=== PATIENT | male | born 1955 | race Caucasian/White ===

== ENCOUNTER 2017-06-08 19:52 | Emergency (ER) | payer MEDICAID ==
[~2017-06-08] VITALS: Ht 170.2 cm; Wt 63.3 kg
[2017-06-08] MEDS ORDERED: DIPH,PERTUSS(ACELL),TET VAC/PF 0.5 ML IM-VACC ONE ×2 (21:30→21:32)
[2017-06-08] MEDS ORDERED: LIDOCAINE 2%, 20ML SQ ONE (21:30)
[2017-06-08] MEDS ORDERED: HYDROmorphone 1 MG/ML, 1ML IM ONE (21:30)
[2017-06-08] MEDS ORDERED: HYDROmorphone 2 MG/ML, 1ML ONE (21:32)
[2017-06-08] MEDS ORDERED: LIDOCAINE 1%, 20ML ONE (21:32)
[2017-06-08 22:03] VITALS: BP 131/65
== END 2017-06-08 22:50 | disposition home or self-care (01) ==
LOC: ED 22:30
DX: L02.31 Cutaneous abscess of buttock (principal); Z23 Encounter for immunization; F17.200 Nicotine dependence, unspecified, uncomplicated; F11.10 Opioid abuse, uncomplicated
CPT/HCPCS: 10060; 90471; 90715; 96372; 99284; J1170; J3490

== ENCOUNTER 2017-06-09 22:11 | Emergency (ER) | payer MEDICAID ==
[~2017-06-09] VITALS: Ht 170.2 cm; Wt 61.5 kg
[2017-06-09 22:13] VITALS: BP 159/85
== END 2017-06-09 22:49 | disposition home or self-care (01) ==
LOC: ED 22:41
DX: Z48.01 Encounter for change or removal of surgical wound dressing (principal); F11.90 Opioid use, unspecified, uncomplicated
CPT/HCPCS: 99283

== ENCOUNTER 2019-05-29 11:49 | Emergency (ER) | payer MEDICAID ==
[~2019-05-29] VITALS: Ht 170.2 cm; Wt 70.1 kg
[2019-05-29 11:52] VITALS: BP 154/74
--- NOTE | 2019-05-29 12:50 | NUR ---
BILATERAL LEG SWELLING FOR WEEKS BUT WORSENING THIS WEEK. PT NOTED TO HAVE REDNESS LEFT ARM AND LESION RIGHT SHOLDER
[2019-05-29 12:59] LABS: BASOPHILS # (AUTO) 0.02 x10^3/uL (0-0.1); BASOPHILS % (AUTO) 0 % (0-1); EOSINOPHILS # (AUTO) 0.02 x10^3/uL (0-0.4); EOSINOPHILS % (AUTO) 0 % (1-7); LYMPHOCYTES % (AUTO) 24 % (22-44); MD NO; MEAN CORPUSCULAR HEMOGLOBIN 29.6 pg (27.5-34.5); MEAN CORPUSCULAR HGB CONC 32.4 g/dL (33.2-36.2); MEAN CORPUSCULAR VOLUME 91.6 fL (81-97); MEAN PLATELET VOLUME 7.8 fL (7.4-10.4); MONOCYTES # (AUTO) 0.29 x10^3/uL (0.2-0.8); MONOCYTES % (AUTO) 6 % (2-9); NEUTROPHILS # (AUTO) 3.24 x10^3/uL (1.8-6.8); NEUTROPHILS % (AUTO) 69 % (42-75); PLATELET COUNT 135 x10^3/uL (130-400); RED BLOOD COUNT 3.62 x10^6/uL (4.38-5.82); RED CELL DISTRIBUTION WIDTH 17.5 % (9.4-14.8)
--- NOTE | 2019-05-29 13:01 | NUR ---
ULTRASOUND AT BEDSIDE
[2019-05-29 13:12] LABS: ALANINE AMINOTRANSFERASE 43 U/L (12-78); ALBUMIN 2.7 g/dL (3.4-5.0); ANION GAP 7 mmol/L (5-15); CALCIUM 8.1 mg/dL (8.5-10.1); CHLORIDE 106 mmol/L (98-107); CREATININE 0.95 mg/dL (0.7-1.3)
[2019-05-29 13:22] LABS: ALKALINE PHOSPHATASE 186 U/L (45-117); BILIRUBIN,TOTAL 1.1 mg/dL (0.2-1.0); TOTAL PROTEIN 7.6 g/dL (6.4-8.2)
--- NOTE | 2019-05-29 13:44 | NUR ---
MD AT BEDSIDE DISCUSSING RESULTS OF TESTS. PT UOB TO BATHROOM, STEADY GAIT.
[2019-05-29 13:51] LABS: MICROSCOPIC NOT IND
[2019-05-29 13:56] LABS: CULTURE INDICATED? NO
[2019-07-18] MEDS ORDERED: FURO40TA6 PO (15:44)
[2019-07-20] MEDS ORDERED: AMOX1TAB61 PO (17:01)
[2019-07-20] MEDS ORDERED: FURO40TA6 PO (17:01)
== END 2019-05-29 14:38 | disposition home or self-care (01) ==
LOC: ED 12:35
DX: R60.0 Localized edema (principal); I87.2 Venous insufficiency (chronic) (peripheral); F11.10 Opioid abuse, uncomplicated; Z90.49 Acquired absence of other specified parts of digestive tract
CPT/HCPCS: 36415; 71045; 80053; 81003; 83735; 83880; 84443; 85025; 93005; 93970; 99284

== ENCOUNTER 2019-10-10 11:02 | Day surgery (SDC) | payer MEDICAID ==
[2019-10-07 16:28] LABS: BASOPHILS # (AUTO) 0.01 x10^3/uL (0-0.1); BASOPHILS % (AUTO) 0 % (0-1); EOSINOPHILS # (AUTO) 0.09 x10^3/uL (0-0.4); EOSINOPHILS % (AUTO) 2 % (1-7); LYMPHOCYTES # (AUTO) 1.31 x10^3/uL (1-3.4); LYMPHOCYTES % (AUTO) 28 % (22-44); MD NO; MEAN CORPUSCULAR HEMOGLOBIN 30.6 pg (27.5-34.5); MEAN CORPUSCULAR HGB CONC 32.5 g/dL (33.2-36.2); MEAN PLATELET VOLUME 7.5 fL (7.4-10.4); MONOCYTES # (AUTO) 0.36 x10^3/uL (0.2-0.8); MONOCYTES % (AUTO) 8 % (2-9); NEUTROPHILS # (AUTO) 2.89 x10^3/uL (1.8-6.8); NEUTROPHILS % (AUTO) 62 % (42-75); PLATELET COUNT 124 x10^3/uL (130-400); RED BLOOD COUNT 3.97 x10^6/uL (4.38-5.82); RED CELL DISTRIBUTION WIDTH 16.5 % (9.4-14.8)
[2019-10-07 16:40] LABS: INTERNATIONAL NORMALIZED RATIO 1.45 (0.93-1.1)
[2019-10-07 16:48] LABS: ALANINE AMINOTRANSFERASE 41 U/L (12-78); ALBUMIN 2.5 g/dL (3.4-5.0); ANION GAP 8 mmol/L (5-15); CALCIUM 8.5 mg/dL (8.5-10.1); CHLORIDE 104 mmol/L (98-107); CREATININE 0.99 mg/dL (0.7-1.3)
[2019-10-07 16:51] LABS: ALKALINE PHOSPHATASE 171 U/L (45-117); BILIRUBIN,TOTAL 2.1 mg/dL (0.2-1.0); TOTAL PROTEIN 7.4 g/dL (6.4-8.2)
[~2019-10-10] VITALS: Ht 170.2 cm; Wt 66.0 kg
[~2019-10-10 11:02] MED LIST: AMOX1TAB61 PO; FURO20TA3 PO; FURO40TA6 PO; SPIR25TA5 PO
[2019-10-10 11:28] VITALS: BP 153/83
[2019-10-10] MEDS ORDERED: PROPOFOL 50 ML ONE (12:33)
== END 2019-10-10 13:55 | disposition home or self-care (01) ==
LOC: OUT 11:02
PROVIDERS: ATTEND Internal Medicine Gastroenterology
DX: K70.31 Alcoholic cirrhosis of liver with ascites (principal); I85.10 Secondary esophageal varices without bleeding; K76.6 Portal hypertension; K31.89 Other diseases of stomach and duodenum; B18.2 Chronic viral hepatitis C; F11.90 Opioid use, unspecified, uncomplicated; F17.210 Nicotine dependence, cigarettes, uncomplicated; Z72.89 Other problems related to lifestyle; Z79.899 Other long term (current) drug therapy
CPT/HCPCS: 36415; 43235; 80053; 85025; 85610; 85730; 93005; J2704

== ENCOUNTER 2019-11-13 14:16 | Inpatient (IN) | payer MEDICAID ==
[~2019-11-13] VITALS: Ht 170.2 cm; Wt 70.5 kg
--- NOTE | 2019-11-13 16:22 | NUR ---
PT AMBULATORY WITH STEADY GAIT FROM LOBBY TO ROOM 26.
[2019-11-13] MEDS ORDERED: SODIUM CHLORIDE FLUSH 10ML SYR IVF ONE (17:00)
[2019-11-13] MEDS ORDERED: CEFTRIAXONE PMX 1GM/50ML 50 ML IVPB ONE (17:00)
[2019-11-13 17:25] LABS: MEAN CORPUSCULAR HEMOGLOBIN 30.2 pg (27.5-34.5); MEAN CORPUSCULAR VOLUME 91.5 fL (81-97); MEAN PLATELET VOLUME 7.2 fL (7.4-10.4); PLATELET COUNT 170 x10^3/uL (130-400); RED BLOOD COUNT 3.31 x10^6/uL (4.38-5.82); RED CELL DISTRIBUTION WIDTH 16.6 % (9.4-14.8)
[2019-11-13 17:27] LABS: ALBUMIN 1.9 g/dL (3.4-5.0); ANION GAP 11 mmol/L (5-15); CALCIUM 7.9 mg/dL (8.5-10.1); CHLORIDE 102 mmol/L (98-107); CREATININE 1.17 mg/dL (0.7-1.3)
[2019-11-13 17:30] LABS: MD YES
[2019-11-13 17:31] LABS: BAND#(MANUAL) 0.84 x10^3/uL; BANDS%(MANUAL) 5 % (0-7); EOS#(MANUAL) 0.17 x10^3/uL (0.0-0.4); EOS% (MANUAL) 1 % (1-7); LYMPH#(MANUAL) 1.18 x10^3/uL (1-3.4); LYMPHS% (MANUAL) 7 % (22-44); MONOS#(MANUAL) 1.18 x10^3/uL (0.3-2.7); MONOS% (MANUAL) 7 % (2-9); SEG#(MANUAL) 13.44 x10^3/uL (1.8-6.8); SEGS% (MANUAL) 80 % (42-75)
[2019-11-13 17:33] LABS: <PLATELET ESTIMATE> ADEQUATE; ANISOCYTOSIS 1+; POLYCHROMASIA 1+
[2019-11-13 17:34] LABS: SMALL PLATELETS 1+
[2019-11-13] MEDS ORDERED: CEFTRIAXONE PMX 1GM/50ML 50 ML ONE ×2 (17:49→17:59)
--- NOTE | 2019-11-13 18:11 | NUR ---
IV PLACED, ANTIBIOTIC INFUSING AFTER CONFIRMATION OF BC X 2 DRAWN. I&D SET UP AT BS. CALL LIGHT WITHIN REACH. PT COMFORTABLE AT THIS TIME.
[2019-11-13] MEDS ORDERED: LIDOCAINE-MPF 1%, 5ML ONE (19:36)
--- NOTE | 2019-11-13 19:37 | NUR ---
CONTINUE TO AWAIT PROCALCITONIN LAB. PT TO BE ADMITTED. MED REC COMPLETED TO BEST OF PT RECOLLECTION. PT STATES HE TAKES 2 "PEE" MEDS. LIDOCAINE GIVEN TO ERP. VSS/UPDATED IN COMPUTER.
--- NOTE | 2019-11-13 19:52 | NUR ---
REPORT TO KAILEY HOWARD, TRANSFER OF CARE AT THIS TIME. PT TO XR.
--- NOTE | 2019-11-13 20:03 | NUR ---
report from michaela bahena
[2019-11-13] MEDS ORDERED: SODIUM CHLORIDE FLUSH 10ML SYR IVF PRN (21:00)
--- NOTE | 2019-11-13 21:04 | NUR ---
PT CLEANED AND NEW LINENS APPLIED.
--- NOTE | 2019-11-13 21:04 | NUR ---
BANDAGES TO THE RIGHT HIP WOUND AND LEFT SHOULDER WOUND APPLIED. CLEAN DRY AND INTACT AT THIS TIME.
[2019-11-13] MEDS ORDERED: SODIUM CHLORIDE 0.9% 1,000 ML IV ONE (21:09)
--- NOTE | 2019-11-13 21:13 | NUR ---
I ASKED DR STEELE FOR ORDERS FOR FLUIDS. ORDERS RECIEVED AND IV BOLUS INITIATED.
[2019-11-13] MEDS ORDERED: SODIUM CHLORIDE 0.9% 1,000ML IVBOLUS ONE (21:30)
[2019-11-13 22:30] LABS: ALBUMIN 1.9 g/dL (3.4-5.0); BILIRUBIN, DIRECT 3.2 mg/dL (0.1-0.2)
[2019-11-13 22:32] LABS: BILIRUBIN,INDIRECT 1.4 mg/dL (0.0-2.0); BILIRUBIN,TOTAL 4.6 mg/dL (0.2-1.0); TOTAL PROTEIN 6.4 g/dL (6.4-8.2)
[2019-11-13 22:34] LABS: INTERNATIONAL NORMALIZED RATIO 1.57 (0.93-1.1); PROTHROMBIN TIME 16.7 Seconds (9.6-11.5)
--- NOTE | 2019-11-13 23:22 | NUR ---
Report given to ANITA Allen
[2019-11-13 23:30] VITALS: BP 144/90
[2019-11-13] MEDS ORDERED: VANCOMYCIN PER PHARMACY MC PRN (23:30)
[2019-11-13] MEDS ORDERED: THIAMINE 200 MG in SODIUM CHLORIDE 0.9% 50 ML IV ONE (23:30)
--- NOTE | 2019-11-13 23:39 | NUR ---
At time of admit, pt alert and resting on gurrisa. NAD.
[2019-11-13] MEDS ORDERED: VANCOMYCIN 1,300 MG in SODIUM CHLORIDE 0.9% 250 ML IV SCH (23:45)
[2019-11-13] MEDS ORDERED: PHARMACOKINETIC CONSULTATION MC ONE (23:45)
[2019-11-13] MEDS ORDERED: PHARMACOKINETIC MONITORING MC PRN (23:45)
[2019-11-13] MEDS: morphine SULFATE 10 MG/ML, 1ML IVPush PRN (23:57)
[2019-11-14] MEDS: AMPICILLIN/SULBACTAM 3 GM in SODIUM CHLORIDE 0.9% 100 ML IV SCH ×4 (01:13→20:24)
[2019-11-14] MEDS ORDERED: hydrALAzine 20 MG/ML, 1ML IVPush PRN (01:30)
[2019-11-14] MEDS ORDERED: PROMETHAZINE 25 MG/ML, 1ML IM PRN (01:30)
[2019-11-14] MEDS ORDERED: GABAPENTIN 300 MG CAPSULE PO PRN (01:30)
[2019-11-14] MEDS: VANCOMYCIN 1,600 MG in SODIUM CHLORIDE 0.9% 250 ML IV SCH (01:59)
[2019-11-14 02:06] VITALS: BP 124/74
[2019-11-14] MEDS: morphine SULFATE 10 MG/ML, 1ML IVPush PRN ×4 (06:26→21:38)
[2019-11-14 07:28] VITALS: BP 107/68
[2019-11-14] MEDS: ONDANSETRON 2MG/ML, 2ML IVPush PRN ×2 (08:40→17:58)
[2019-11-14] MEDS: FUROSEMIDE 20 MG/2 ML IV SCH (08:44)
[2019-11-14] MEDS: ENOXAPARIN 40 MG/0.4 ML SQ SCH (08:45)
[2019-11-14] MEDS: SPIRONOLACTONE 25 MG TABLET PO SCH (08:45)
[2019-11-14] MEDS: LACTULOSE 10 GM/15 ML UDC PO SCH ×2 (08:46→20:24)
[2019-11-14 09:01] LABS: MEAN CORPUSCULAR HEMOGLOBIN 30.4 pg (27.5-34.5); MEAN CORPUSCULAR HGB CONC 33.1 g/dL (33.2-36.2); MEAN CORPUSCULAR VOLUME 91.9 fL (81-97); MEAN PLATELET VOLUME 7.1 fL (7.4-10.4); PLATELET COUNT 154 x10^3/uL (130-400); RED CELL DISTRIBUTION WIDTH 16.7 % (9.4-14.8)
[2019-11-14 09:07] LABS: ALANINE AMINOTRANSFERASE 23 U/L (12-78); ALBUMIN 1.5 g/dL (3.4-5.0); ANION GAP 8 mmol/L (5-15); CALCIUM 7.4 mg/dL (8.5-10.1); CHLORIDE 105 mmol/L (98-107); CREATININE 1.05 mg/dL (0.7-1.3)
[2019-11-14 09:09] LABS: ALKALINE PHOSPHATASE 147 U/L (45-117); BILIRUBIN,TOTAL 4.7 mg/dL (0.2-1.0); TOTAL PROTEIN 5.4 g/dL (6.4-8.2)
[2019-11-14 10:03] LABS: MD YES
[2019-11-14 10:05] LABS: BAND#(MANUAL) 1.95 x10^3/uL; BANDS%(MANUAL) 16 % (0-7); EOS#(MANUAL) 0.12 x10^3/uL (0.0-0.4); EOS% (MANUAL) 1 % (1-7); LYMPH#(MANUAL) 0.61 x10^3/uL (1-3.4); LYMPHS% (MANUAL) 5 % (22-44); MONOS#(MANUAL) 0.49 x10^3/uL (0.3-2.7); MONOS% (MANUAL) 4 % (2-9); SEG#(MANUAL) 9.03 x10^3/uL (1.8-6.8); SEGS% (MANUAL) 74 % (42-75)
[2019-11-14 10:06] LABS: <PLATELET ESTIMATE> ADEQUATE; ANISOCYTOSIS 1+; POLYCHROMASIA 1+
[2019-11-14 10:07] LABS: <PLT MORPHOLOGY> NORMAL PLT MORPH
[2019-11-14 10:32] LABS: AMPHETAMINE SCREEN, URINE Negative (Negative); BARBITURATE SCREEN, URINE Negative (Negative); BENZODIAZEPINE SCREEN, URINE Negative (Negative); CANNABINOID SCREEN, URINE Negative (Negative); COCAINE SCREEN, URINE Negative (Negative); METHADONE SCREEN, URINE Positive (Negative); OPIATE SCREEN, URINE Positive (Negative)
[2019-11-14 12:30] VITALS: BP 103/65
[2019-11-14] MEDS: THIAMINE 100MG TABLET PO SCH (13:48)
[2019-11-14] MEDS: FOLIC ACID 1 MG TABLET PO SCH (13:48)
[2019-11-14 19:23] VITALS: BP 103/65
[2019-11-15] MEDS: morphine SULFATE 10 MG/ML, 1ML IVPush PRN ×5 (01:00→21:51)
[2019-11-15] MEDS: AMPICILLIN/SULBACTAM 3 GM in SODIUM CHLORIDE 0.9% 100 ML IV SCH ×4 (01:00→22:31)
[2019-11-15] MEDS: VANCOMYCIN 1,600 MG in SODIUM CHLORIDE 0.9% 250 ML IV SCH (01:59)
[2019-11-15 02:05] VITALS: BP 129/55
[2019-11-15 06:16] LABS: ALBUMIN 1.5 g/dL (3.4-5.0); ANION GAP 12 mmol/L (5-15); BASOPHILS # (AUTO) 0.06 x10^3/uL (0-0.1); BASOPHILS % (AUTO) 1 % (0-1); CALCIUM 7.2 mg/dL (8.5-10.1); CHLORIDE 104 mmol/L (98-107); EOSINOPHILS # (AUTO) 0.22 x10^3/uL (0-0.4); EOSINOPHILS % (AUTO) 2 % (1-7); LYMPHOCYTES # (AUTO) 1.21 x10^3/uL (1-3.4); LYMPHOCYTES % (AUTO) 11 % (22-44); MD NO; MEAN CORPUSCULAR HEMOGLOBIN 30.8 pg (27.5-34.5); MEAN CORPUSCULAR HGB CONC 33.4 g/dL (33.2-36.2); MEAN CORPUSCULAR VOLUME 92.1 fL (81-97); MEAN PLATELET VOLUME 7.3 fL (7.4-10.4); MONOCYTES % (AUTO) 8 % (2-9); NEUTROPHILS % (AUTO) 79 % (42-75); PLATELET COUNT 160 x10^3/uL (130-400); RED BLOOD COUNT 2.82 x10^6/uL (4.38-5.82); RED CELL DISTRIBUTION WIDTH 17.1 % (9.4-14.8)
[2019-11-15 06:23] LABS: ALANINE AMINOTRANSFERASE 22 U/L (12-78); ALKALINE PHOSPHATASE 148 U/L (45-117); BILIRUBIN,TOTAL 4.1 mg/dL (0.2-1.0); CREATININE 1.27 mg/dL (0.7-1.3); TOTAL PROTEIN 5.2 g/dL (6.4-8.2)
[2019-11-15 07:30] VITALS: BP 111/59
[2019-11-15] MEDS: SPIRONOLACTONE 25 MG TABLET PO SCH (08:36)
[2019-11-15] MEDS: FOLIC ACID 1 MG TABLET PO SCH (08:36)
[2019-11-15] MEDS: FUROSEMIDE 20 MG/2 ML IV SCH (08:36)
[2019-11-15] MEDS: LACTULOSE 10 GM/15 ML UDC PO SCH ×2 (08:36→21:51)
[2019-11-15] MEDS: THIAMINE 100MG TABLET PO SCH (08:36)
[2019-11-15] MEDS: ENOXAPARIN 40 MG/0.4 ML SQ SCH (08:37)
[2019-11-15] MEDS: LORazepam 2 MG/ML, 1ML IVPush PRN ×2 (10:31→22:27)
[2019-11-15 13:49] VITALS: BP 109/66
[2019-11-15 19:07] VITALS: BP 105/66
[2019-11-15] MEDS: ALBUMIN HUMAN 25% 50 ML IV SCH (21:52)
[2019-11-16 00:52] VITALS: BP 111/73
[2019-11-16] MEDS: morphine SULFATE 10 MG/ML, 1ML IVPush PRN ×5 (04:09→23:30)
[2019-11-16] MEDS: VANCOMYCIN 1,600 MG in SODIUM CHLORIDE 0.9% 250 ML IV SCH (04:09)
[2019-11-16] MEDS: ALBUMIN HUMAN 25% 50 ML IV SCH ×2 (06:13→14:36)
[2019-11-16] MEDS: AMPICILLIN/SULBACTAM 3 GM in SODIUM CHLORIDE 0.9% 100 ML IV SCH ×3 (07:14→18:59)
[2019-11-16 08:35] VITALS: BP 122/65
[2019-11-16 09:45] LABS: ALANINE AMINOTRANSFERASE 20 U/L (12-78); ALBUMIN 1.5 g/dL (3.4-5.0); ANION GAP 9 mmol/L (5-15); CALCIUM 7.4 mg/dL (8.5-10.1); CHLORIDE 107 mmol/L (98-107); CREATININE 1.17 mg/dL (0.7-1.3)
[2019-11-16 09:47] LABS: ALKALINE PHOSPHATASE 145 U/L (45-117); BILIRUBIN,TOTAL 4.8 mg/dL (0.2-1.0); TOTAL PROTEIN 5.4 g/dL (6.4-8.2)
[2019-11-16 10:40] LABS: MEAN CORPUSCULAR HEMOGLOBIN 30.7 pg (27.5-34.5); MEAN CORPUSCULAR VOLUME 93.1 fL (81-97); MEAN PLATELET VOLUME 8.5 fL (7.4-10.4); PLATELET COUNT 179 x10^3/uL (130-400); RED BLOOD COUNT 2.85 x10^6/uL (4.38-5.82); RED CELL DISTRIBUTION WIDTH 17.1 % (9.4-14.8)
[2019-11-16 10:42] LABS: BASOPHILS # (AUTO) 0.03 x10^3/uL (0-0.1); BASOPHILS % (AUTO) 0 % (0-1); EOSINOPHILS # (AUTO) 0.09 x10^3/uL (0-0.4); EOSINOPHILS % (AUTO) 1 % (1-7); LYMPHOCYTES # (AUTO) 0.63 x10^3/uL (1-3.4); LYMPHOCYTES % (AUTO) 6 % (22-44); MD SCAN; MONOCYTES % (AUTO) 6 % (2-9); NEUTROPHILS # (AUTO) 9.59 x10^3/uL (1.8-6.8); NEUTROPHILS % (AUTO) 87 % (42-75)
[2019-11-16] MEDS: ENOXAPARIN 40 MG/0.4 ML SQ SCH (10:53)
[2019-11-16] MEDS: FOLIC ACID 1 MG TABLET PO SCH (10:53)
[2019-11-16] MEDS: THIAMINE 100MG TABLET PO SCH (10:53)
[2019-11-16] MEDS: SPIRONOLACTONE 25 MG TABLET PO SCH (10:53)
[2019-11-16] MEDS: FUROSEMIDE 20 MG/2 ML IV SCH (10:53)
[2019-11-16] MEDS: LACTULOSE 10 GM/15 ML UDC PO SCH ×2 (10:54→21:10)
[2019-11-16] MEDS ORDERED: LIDOCAINE 1%, 10ML ONE (12:32)
[2019-11-16 14:25] VITALS: BP 115/68
[2019-11-16] MEDS ORDERED: GADOTERATE 7.5 MMOL/15 ML SYR ONE (16:48)
[2019-11-16 20:27] VITALS: BP 103/56
[2019-11-17] MEDS: AMPICILLIN/SULBACTAM 3 GM in SODIUM CHLORIDE 0.9% 100 ML IV SCH ×4 (01:02→19:01)
[2019-11-17 01:05] VITALS: BP 122/69
[2019-11-17] MEDS: VANCOMYCIN 1,600 MG in SODIUM CHLORIDE 0.9% 250 ML IV SCH (04:12)
[2019-11-17 05:15] LABS: BASOPHILS # (AUTO) 0.03 x10^3/uL (0-0.1); BASOPHILS % (AUTO) 0 % (0-1); EOSINOPHILS # (AUTO) 0.11 x10^3/uL (0-0.4); EOSINOPHILS % (AUTO) 1 % (1-7); LYMPHOCYTES # (AUTO) 0.94 x10^3/uL (1-3.4); LYMPHOCYTES % (AUTO) 12 % (22-44); MD NO; MEAN CORPUSCULAR HEMOGLOBIN 30.7 pg (27.5-34.5); MEAN CORPUSCULAR HGB CONC 33.2 g/dL (33.2-36.2); MEAN CORPUSCULAR VOLUME 92.6 fL (81-97); MEAN PLATELET VOLUME 7.2 fL (7.4-10.4); MONOCYTES # (AUTO) 0.64 x10^3/uL (0.2-0.8); MONOCYTES % (AUTO) 8 % (2-9); NEUTROPHILS # (AUTO) 6.09 x10^3/uL (1.8-6.8); NEUTROPHILS % (AUTO) 78 % (42-75); PLATELET COUNT 129 x10^3/uL (130-400); RED BLOOD COUNT 2.52 x10^6/uL (4.38-5.82); RED CELL DISTRIBUTION WIDTH 17.1 % (9.4-14.8)
[2019-11-17 05:24] LABS: ALANINE AMINOTRANSFERASE 17 U/L (12-78); ALBUMIN 1.7 g/dL (3.4-5.0); ANION GAP 6 mmol/L (5-15); CALCIUM 7.3 mg/dL (8.5-10.1); CHLORIDE 107 mmol/L (98-107); CREATININE 1.01 mg/dL (0.7-1.3)
[2019-11-17 05:26] LABS: ALKALINE PHOSPHATASE 125 U/L (45-117); BILIRUBIN,TOTAL 3.8 mg/dL (0.2-1.0); TOTAL PROTEIN 4.9 g/dL (6.4-8.2)
[2019-11-17] MEDS: morphine SULFATE 10 MG/ML, 1ML IVPush PRN ×5 (06:46→23:41)
[2019-11-17 09:10] VITALS: BP 93/50
[2019-11-17] MEDS: ENOXAPARIN 40 MG/0.4 ML SQ SCH (10:06)
[2019-11-17] MEDS: FUROSEMIDE 20 MG/2 ML IV SCH ×2 (10:07→21:00)
[2019-11-17] MEDS: SPIRONOLACTONE 25 MG TABLET PO SCH (10:08)
[2019-11-17] MEDS: FOLIC ACID 1 MG TABLET PO SCH (10:08)
[2019-11-17] MEDS: THIAMINE 100MG TABLET PO SCH (10:08)
[2019-11-17] MEDS: LACTULOSE 10 GM/15 ML UDC PO SCH ×2 (10:13→21:00)
[2019-11-17 12:40] VITALS: BP 141/77
[2019-11-17 16:00] VITALS: BP 116/67
[2019-11-17 19:22] VITALS: BP 121/79
[2019-11-18 00:19] VITALS: BP 109/62
[2019-11-18] MEDS: AMPICILLIN/SULBACTAM 3 GM in SODIUM CHLORIDE 0.9% 100 ML IV SCH ×2 (01:13→06:43)
[2019-11-18] MEDS: VANCOMYCIN 1,600 MG in SODIUM CHLORIDE 0.9% 250 ML IV SCH (04:27)
[2019-11-18] MEDS: morphine SULFATE 10 MG/ML, 1ML IVPush PRN ×5 (05:10→20:35)
[2019-11-18 06:21] LABS: BASOPHILS # (AUTO) 0.03 x10^3/uL (0-0.1); BASOPHILS % (AUTO) 1 % (0-1); EOSINOPHILS # (AUTO) 0.12 x10^3/uL (0-0.4); EOSINOPHILS % (AUTO) 2 % (1-7); LYMPHOCYTES # (AUTO) 1.13 x10^3/uL (1-3.4); LYMPHOCYTES % (AUTO) 15 % (22-44); MD NO; MEAN CORPUSCULAR HEMOGLOBIN 30.6 pg (27.5-34.5); MEAN CORPUSCULAR HGB CONC 32.6 g/dL (33.2-36.2); MEAN CORPUSCULAR VOLUME 93.8 fL (81-97); MEAN PLATELET VOLUME 6.9 fL (7.4-10.4); MONOCYTES # (AUTO) 0.66 x10^3/uL (0.2-0.8); MONOCYTES % (AUTO) 9 % (2-9); NEUTROPHILS # (AUTO) 5.71 x10^3/uL (1.8-6.8); NEUTROPHILS % (AUTO) 75 % (42-75); PLATELET COUNT 145 x10^3/uL (130-400); RED BLOOD COUNT 2.54 x10^6/uL (4.38-5.82)
[2019-11-18 06:45] LABS: ANION GAP 6 mmol/L (5-15); CALCIUM 7.7 mg/dL (8.5-10.1); CHLORIDE 105 mmol/L (98-107)
[2019-11-18 06:51] LABS: ALANINE AMINOTRANSFERASE 20 U/L (12-78); ALBUMIN 1.6 g/dL (3.4-5.0); ALKALINE PHOSPHATASE 135 U/L (45-117); BILIRUBIN,TOTAL 2.9 mg/dL (0.2-1.0); CREATININE 0.95 mg/dL (0.7-1.3); TOTAL PROTEIN 5.2 g/dL (6.4-8.2)
[2019-11-18 09:06] VITALS: BP 104/52
[2019-11-18] MEDS: FOLIC ACID 1 MG TABLET PO SCH (09:49)
[2019-11-18] MEDS: ENOXAPARIN 40 MG/0.4 ML SQ SCH (09:49)
[2019-11-18] MEDS: THIAMINE 100MG TABLET PO SCH (09:49)
[2019-11-18] MEDS: SPIRONOLACTONE 25 MG TABLET PO SCH (09:49)
[2019-11-18] MEDS: LACTULOSE 10 GM/15 ML UDC PO SCH ×2 (09:49→20:35)
[2019-11-18] MEDS: FUROSEMIDE 20 MG/2 ML IV SCH ×2 (09:49→20:35)
[2019-11-18 13:22] LABS: HCT (SEDRATE) 24.4 % (39.2-51.8)
[2019-11-18 13:40] LABS: C-REACTIVE PROTEIN, QUANT 1.8 mg/dL (0.02-0.49)
[2019-11-18] MEDS: DAPTOMYCIN 450 MG in SODIUM CHLORIDE 0.9% 100 ML IV SCH (14:08)
[2019-11-18 16:00] VITALS: BP 132/75
[2019-11-18 19:34] VITALS: BP 125/67
[2019-11-19] MEDS: morphine SULFATE 10 MG/ML, 1ML IVPush PRN ×5 (00:11→23:23)
[2019-11-19 00:12] VITALS: BP 114/66
[2019-11-19 05:40] LABS: BASOPHILS # (AUTO) 0.05 x10^3/uL (0-0.1); BASOPHILS % (AUTO) 1 % (0-1); EOSINOPHILS # (AUTO) 0.21 x10^3/uL (0-0.4); EOSINOPHILS % (AUTO) 3 % (1-7); LYMPHOCYTES # (AUTO) 0.85 x10^3/uL (1-3.4); LYMPHOCYTES % (AUTO) 11 % (22-44); MD NO; MEAN CORPUSCULAR HEMOGLOBIN 31.3 pg (27.5-34.5); MEAN CORPUSCULAR HGB CONC 33.3 g/dL (33.2-36.2); MEAN CORPUSCULAR VOLUME 94.1 fL (81-97); MEAN PLATELET VOLUME 7.3 fL (7.4-10.4); MONOCYTES # (AUTO) 0.59 x10^3/uL (0.2-0.8); MONOCYTES % (AUTO) 8 % (2-9); NEUTROPHILS # (AUTO) 5.75 x10^3/uL (1.8-6.8); NEUTROPHILS % (AUTO) 77 % (42-75); PLATELET COUNT 134 x10^3/uL (130-400); RED BLOOD COUNT 2.56 x10^6/uL (4.38-5.82); RED CELL DISTRIBUTION WIDTH 18.4 % (9.4-14.8)
[2019-11-19 05:50] LABS: ALBUMIN 1.6 g/dL (3.4-5.0); ANION GAP 7 mmol/L (5-15); CALCIUM 7.6 mg/dL (8.5-10.1); CHLORIDE 104 mmol/L (98-107)
[2019-11-19 05:55] LABS: ALANINE AMINOTRANSFERASE 21 U/L (12-78); ALKALINE PHOSPHATASE 115 U/L (45-117); BILIRUBIN,TOTAL 4.1 mg/dL (0.2-1.0); CREATININE 0.94 mg/dL (0.7-1.3); TOTAL PROTEIN 5.3 g/dL (6.4-8.2)
[2019-11-19 07:20] VITALS: BP 108/61
[2019-11-19] MEDS: ENOXAPARIN 40 MG/0.4 ML SQ SCH (07:26)
[2019-11-19] MEDS: FUROSEMIDE 20 MG/2 ML IV SCH (07:30)
[2019-11-19] MEDS: LACTULOSE 10 GM/15 ML UDC PO SCH ×3 (07:31→20:48)
[2019-11-19] MEDS: THIAMINE 100MG TABLET PO SCH (07:31)
[2019-11-19] MEDS: FOLIC ACID 1 MG TABLET PO SCH (07:31)
[2019-11-19] MEDS: SPIRONOLACTONE 25 MG TABLET PO SCH (07:31)
[2019-11-19] MEDS ORDERED: POTASSIUM CHLORIDE 20 MEQ TAB.ER.PRT PO ONE (09:00)
[2019-11-19 12:39] VITALS: BP_SYST 95; BP_DIAS 63; BP_DIAS 83
[2019-11-19] MEDS ORDERED: BUPIVACAINE/PF 0.25% ONE (12:57)
[2019-11-19] MEDS: DAPTOMYCIN 450 MG in SODIUM CHLORIDE 0.9% 100 ML IV SCH (13:27)
[2019-11-19] MEDS: FUROSEMIDE 20 MG TABLET PO SCH (16:24)
[2019-11-19] MEDS ORDERED: FENTANYL PF 100 MCG/2ML ONE ×4 (16:26→17:50)
[2019-11-19] MEDS ORDERED: NEOSTIGMINE 1 MG/ML, 10ML ONE (17:00)
[2019-11-19] MEDS ORDERED: OXYcodone 5 MG/5 ML ORAL.SOL UDC PO PRN (17:00)
[2019-11-19] MEDS ORDERED: ROCURONIUM 10MG/ML,5ML ONE (17:00)
[2019-11-19] MEDS ORDERED: ONDANSETRON 2MG/ML, 2ML ONE (17:00)
[2019-11-19] MEDS ORDERED: DEXAMETHASONE 4 MG/ML, 1ML ONE (17:00)
[2019-11-19] MEDS ORDERED: ACETAMINOPHEN 325 MG TABLET PO PRN (17:00)
[2019-11-19] MEDS ORDERED: SUCCINYLCHOLINE 20 MG/ML, 10ML ONE (17:00)
[2019-11-19] MEDS ORDERED: PROMETHAZINE 25 MG/ML, 1ML IV PRN (17:00)
[2019-11-19] MEDS ORDERED: PROPOFOL 10 MG/ML, 20ML ONE (17:00)
[2019-11-19] MEDS ORDERED: GLYCOPYRROLATE 0.2MG/1ML, 5ML ONE (17:00)
[2019-11-19] MEDS ORDERED: ONDANSETRON 2MG/ML, 2ML IV PRN (17:00)
[2019-11-19] MEDS ORDERED: ONDANSETRON ODT 8 MG PO PRN (17:00)
[2019-11-19] MEDS ORDERED: CEFAZOLIN 1,000 MG ONE (17:00)
[2019-11-19] MEDS ORDERED: PROMETHAZINE 25 MG SUPP PR PRN (17:00)
[2019-11-19] MEDS: FENTANYL PF 100 MCG/2ML IV PRN ×4 (17:33→18:00)
[2019-11-19] MEDS ORDERED: HYDROmorphone 2 MG/ML, 1ML ONE ×2 (17:34→17:56)
[2019-11-19] MEDS: HYDROmorphone 2 MG/ML, 1ML IVPush PRN ×7 (17:35→18:38)
[2019-11-19] MEDS ORDERED: LORazepam 2 MG/ML, 1ML ONE (17:50)
[2019-11-19] MEDS: LORazepam 2 MG/ML, 1ML IVPush PRN ×2 (17:52→18:06)
[2019-11-19] MEDS ORDERED: DIAZEPAM 5 MG/ML, 2ML ONE (18:12)
[2019-11-19] MEDS ORDERED: DIAZEPAM 5 MG/ML, 2ML IVPush PRN (18:30)
[2019-11-19] MEDS ORDERED: LABETALOL 5MG/ML, 20ML IV PRN (18:30)
[2019-11-19 20:05] VITALS: BP 115/74
[2019-11-20 00:47] VITALS: BP 102/65
[2019-11-20] MEDS: OXYcodone IR 5MG TABLET PO PRN ×3 (01:58→20:24)
[2019-11-20 06:53] VITALS: BP 92/57
[2019-11-20] MEDS: ENOXAPARIN 40 MG/0.4 ML SQ SCH (09:59)
[2019-11-20] MEDS: LACTULOSE 10 GM/15 ML UDC PO SCH ×2 (09:59→20:37)
[2019-11-20] MEDS: FOLIC ACID 1 MG TABLET PO SCH (09:59)
[2019-11-20] MEDS: THIAMINE 100MG TABLET PO SCH (09:59)
[2019-11-20] MEDS: SPIRONOLACTONE 25 MG TABLET PO SCH (09:59)
[2019-11-20] MEDS: FUROSEMIDE 20 MG TABLET PO SCH ×2 (10:00→16:19)
[2019-11-20] MEDS: DAPTOMYCIN 450 MG in SODIUM CHLORIDE 0.9% 100 ML IV SCH (12:12)
[2019-11-20 14:39] VITALS: BP 116/70
[2019-11-20 19:26] VITALS: BP 107/67
[2019-11-20] MEDS: morphine SULFATE 10 MG/ML, 1ML IVPush PRN (23:08)
[2019-11-21 00:53] VITALS: BP 104/62
[2019-11-21] MEDS: OXYcodone IR 5MG TABLET PO PRN (04:45)
[2019-11-21] MEDS: morphine SULFATE 10 MG/ML, 1ML IVPush PRN ×4 (05:51→21:42)
[2019-11-21 08:28] VITALS: BP 101/62
[2019-11-21] MEDS: LACTULOSE 10 GM/15 ML UDC PO SCH ×3 (09:00→21:00)
[2019-11-21] MEDS: FUROSEMIDE 20 MG TABLET PO SCH ×2 (09:39→18:15)
[2019-11-21] MEDS: ENOXAPARIN 40 MG/0.4 ML SQ SCH (09:39)
[2019-11-21] MEDS: THIAMINE 100MG TABLET PO SCH (09:39)
[2019-11-21] MEDS: FOLIC ACID 1 MG TABLET PO SCH (09:39)
[2019-11-21] MEDS: SPIRONOLACTONE 25 MG TABLET PO SCH (09:39)
[2019-11-21] MEDS: DAPTOMYCIN 450 MG in SODIUM CHLORIDE 0.9% 100 ML IV SCH (13:52)
[2019-11-21 14:04] VITALS: BP 115/73
[2019-11-21 18:40] VITALS: BP 143/56
[2019-11-22 00:14] VITALS: BP 136/94
[2019-11-22] MEDS: OXYcodone IR 5MG TABLET PO PRN (00:30)
[2019-11-22] MEDS: morphine SULFATE 10 MG/ML, 1ML IVPush PRN ×7 (02:32→23:21)
[2019-11-22 06:34] VITALS: BP 87/50
[2019-11-22 06:53] LABS: ANION GAP 4 mmol/L (5-15); CALCIUM 7.3 mg/dL (8.5-10.1); CHLORIDE 103 mmol/L (98-107)
[2019-11-22 06:55] LABS: CREATININE 1.02 mg/dL (0.7-1.3)
[2019-11-22] MEDS: ENOXAPARIN 40 MG/0.4 ML SQ SCH (09:03)
[2019-11-22] MEDS: FUROSEMIDE 20 MG TABLET PO SCH ×2 (09:03→16:32)
[2019-11-22] MEDS: LACTULOSE 10 GM/15 ML UDC PO SCH ×2 (09:04→20:15)
[2019-11-22] MEDS: FOLIC ACID 1 MG TABLET PO SCH (09:04)
[2019-11-22] MEDS: THIAMINE 100MG TABLET PO SCH (09:04)
[2019-11-22] MEDS: SPIRONOLACTONE 25 MG TABLET PO SCH (09:04)
[2019-11-22] MEDS: DAPTOMYCIN 450 MG in SODIUM CHLORIDE 0.9% 100 ML IV SCH (13:15)
[2019-11-22 15:48] VITALS: BP 92/56
[2019-11-22 19:33] VITALS: BP 112/62
[2019-11-23 01:53] VITALS: BP 96/59
[2019-11-23] MEDS: morphine SULFATE 10 MG/ML, 1ML IVPush PRN ×3 (03:12→11:28)
[2019-11-23] MEDS: FUROSEMIDE 20 MG TABLET PO SCH ×2 (07:29→17:16)
[2019-11-23] MEDS: LACTULOSE 10 GM/15 ML UDC PO SCH ×2 (07:29→21:00)
[2019-11-23] MEDS: ENOXAPARIN 40 MG/0.4 ML SQ SCH (07:29)
[2019-11-23] MEDS: SPIRONOLACTONE 25 MG TABLET PO SCH (07:29)
[2019-11-23] MEDS: FOLIC ACID 1 MG TABLET PO SCH (07:29)
[2019-11-23] MEDS: THIAMINE 100MG TABLET PO SCH (07:29)
[2019-11-23 08:05] VITALS: BP 103/64
[2019-11-23] MEDS: DAPTOMYCIN 450 MG in SODIUM CHLORIDE 0.9% 100 ML IV SCH (13:49)
[2019-11-23 13:53] VITALS: BP 96/57
[2019-11-23] MEDS ORDERED: morphine SULFATE 10 MG/ML, 1ML IVPush PRN (14:30)
[2019-11-23] MEDS ORDERED: OXYcodone 5 MG/5 ML ORAL.SOL UDC PO PRN (16:00)
[2019-11-23] MEDS ORDERED: LABETALOL 5MG/ML, 20ML IV PRN (16:00)
[2019-11-23] MEDS ORDERED: hydrALAzine 20 MG/ML, 1ML IV PRN (16:00)
[2019-11-23] MEDS ORDERED: FENTANYL PF 100 MCG/2ML IV PRN (16:00)
[2019-11-23] MEDS ORDERED: PROMETHAZINE 25 MG/ML, 1ML IV PRN (16:00)
[2019-11-23] MEDS ORDERED: MEPERIDINE/PF 25MG/ML,1ML IVPush PRN (16:00)
[2019-11-23] MEDS ORDERED: HYDROmorphone 2 MG/ML, 1ML IVPush PRN (16:00)
[2019-11-23] MEDS ORDERED: HALOPERIDOL 5 MG/ML IV PRN (16:00)
[2019-11-23] MEDS ORDERED: FENTANYL PF 100 MCG/2ML ONE (17:02)
[2019-11-23] MEDS ORDERED: DEXAMETHASONE 4 MG/ML, 1ML ONE (17:40)
[2019-11-23] MEDS ORDERED: GLYCOPYRROLATE 0.2MG/1ML, 5ML ONE (17:40)
[2019-11-23] MEDS ORDERED: CEFAZOLIN 1,000 MG ONE (17:40)
[2019-11-23] MEDS ORDERED: ROCURONIUM 10MG/ML,5ML ONE (17:40)
[2019-11-23] MEDS ORDERED: PROPOFOL 10 MG/ML, 20ML ONE (17:40)
[2019-11-23] MEDS ORDERED: NEOSTIGMINE 1 MG/ML, 10ML ONE (17:40)
[2019-11-23] MEDS ORDERED: SUCCINYLCHOLINE 20 MG/ML, 10ML ONE (17:40)
[2019-11-23] MEDS ORDERED: ONDANSETRON 2MG/ML, 2ML ONE (17:40)
[2019-11-23] MEDS ORDERED: MIDAZOLAM 1 MG/ML, 2ML ONE (18:02)
[2019-11-23] MEDS ORDERED: FLUMAZENIL 0.1 MG/1 ML, 5ML ONE (18:33)
[2019-11-23] MEDS ORDERED: PROPOFOL 50 ML ONE (18:47)
[2019-11-23] MEDS ORDERED: PROPOFOL 100 ML IV ONE (19:44)
[2019-11-23] MEDS ORDERED: FLUMAZENIL 0.1 MG/1 ML, 5ML IVPush ONE (20:00)
[2019-11-23] MEDS ORDERED: PROPOFOL 100 ML IV PRN ×2 (20:00→20:43)
[2019-11-23] MEDS ORDERED: NOREPINEPHRINE 8 MG in SODIUM CHLORIDE 0.9% 242 ML IV PRN (20:43)
[2019-11-23 20:48] LABS: MICROSCOPIC AUTO
[2019-11-23] MEDS ORDERED: DEXTROSE 4 GM TAB.CHEW PO PRN (21:00)
[2019-11-23] MEDS ORDERED: GLUCAGON 1 MG IM PRN (21:00)
[2019-11-23] MEDS: INSULIN LISPRO 100 UNITS/ML, PEN SQ-INSULIN SCH (21:00)
[2019-11-23] MEDS: ALBUTEROL/IPRATROPIUM 2.5MG/0.5MG, 3 ML INLINE SCH (21:00)
[2019-11-23] MEDS ORDERED: SENNA 176 MG/5 ML ORAL SOL NG PRN (21:00)
[2019-11-23] MEDS ORDERED: ALBUMIN HUMAN 25% 100 ML IV ONE (21:00)
[2019-11-23] MEDS ORDERED: PHARMACY MAY ADJ FOR RENAL FX MC SCH (21:00)
[2019-11-23] MEDS ORDERED: BISACODYL 10 MG SUPP PR PRN (21:00)
[2019-11-23] MEDS ORDERED: LIDOCAINE-MPF 1%, 2ML ENDO PRN (21:00)
[2019-11-23] MEDS ORDERED: DEXTROSE 50%, 50ML SYRINGE IVPush PRN (21:00)
[2019-11-23] MEDS ORDERED: LACTULOSE 20 GM/30 ML UDC NG PRN (21:00)
[2019-11-23] MEDS ORDERED: SENNA/DOCUSATE TABLET NG PRN (21:00)
[2019-11-23 21:04] LABS: CULTURE INDICATED? YES
[2019-11-23] MEDS: SODIUM CHLORIDE FLUSH 10ML SYR IVF SCH (21:07)
[2019-11-23 21:54] LABS: TROPONIN I 0.379 ng/mL (0.000-0.045)
[2019-11-23] MEDS: MIDAZOLAM HCL 50 MG in SODIUM CHLORIDE 0.9% 40 ML IV PRN (22:29)
[2019-11-23 22:56] LABS: ANION GAP 8 mmol/L (5-15); CALCIUM 7.3 mg/dL (8.5-10.1); CHLORIDE 105 mmol/L (98-107); CREATININE 1.03 mg/dL (0.7-1.3)
[2019-11-23 22:57] LABS: MEAN CORPUSCULAR HEMOGLOBIN 31.1 pg (27.5-34.5); MEAN CORPUSCULAR HGB CONC 32.9 g/dL (33.2-36.2); MEAN CORPUSCULAR VOLUME 94.7 fL (81-97); MEAN PLATELET VOLUME 7.9 fL (7.4-10.4); PLATELET COUNT 134 x10^3/uL (130-400); RED BLOOD COUNT 2.11 x10^6/uL (4.38-5.82); RED CELL DISTRIBUTION WIDTH 18.6 % (9.4-14.8)
[2019-11-23 23:11] LABS: MD YES
[2019-11-23 23:12] LABS: BAND#(MANUAL) 0.09 x10^3/uL; BANDS%(MANUAL) 1 % (0-7); LYMPH#(MANUAL) 0.53 x10^3/uL (1-3.4); LYMPHS% (MANUAL) 6 % (22-44); MONOS#(MANUAL) 0.45 x10^3/uL (0.3-2.7); MONOS% (MANUAL) 5 % (2-9); SEG#(MANUAL) 7.83 x10^3/uL (1.8-6.8); SEGS% (MANUAL) 88 % (42-75)
[2019-11-23 23:13] LABS: ANISOCYTOSIS 1+; ECHINOCYTES 1+; OVALOCYTES 1+; POLYCHROMASIA 1+
[2019-11-23 23:14] LABS: <PLATELET ESTIMATE> DECREASED; <PLT MORPHOLOGY> NORMAL PLT MORPH
[2019-11-23 23:23] LABS: INTERNATIONAL NORMALIZED RATIO 1.68 (0.93-1.1); PROTHROMBIN TIME 17.9 Seconds (9.6-11.5)
[2019-11-24] VITALS (8 sets, daily range): BP systolic 81–97; BP diastolic 42–57
[2019-11-24] MEDS: FENTANYL PF 100 MCG/2ML IVPush PRN ×3 (00:06→21:58)
[2019-11-24] MEDS: ALBUTEROL/IPRATROPIUM 2.5MG/0.5MG, 3 ML INLINE SCH ×7 (02:10→22:33)
[2019-11-24 03:13] LABS: TROPONIN I 0.465 ng/mL (0.000-0.045)
[2019-11-24] MEDS: MIDAZOLAM HCL 50 MG in SODIUM CHLORIDE 0.9% 40 ML IV PRN ×2 (04:43→23:36)
[2019-11-24] MEDS ORDERED: ALBUMIN HUMAN 5% 500 ML IV ONE (05:30)
[2019-11-24 05:41] LABS: BASOPHILS # (AUTO) 0.07 x10^3/uL (0-0.1); BASOPHILS % (AUTO) 1 % (0-1); EOSINOPHILS # (AUTO) 0.08 x10^3/uL (0-0.4); EOSINOPHILS % (AUTO) 1 % (1-7); LYMPHOCYTES # (AUTO) 1.12 x10^3/uL (1-3.4); LYMPHOCYTES % (AUTO) 13 % (22-44); MD NO; MEAN CORPUSCULAR HEMOGLOBIN 31.6 pg (27.5-34.5); MEAN CORPUSCULAR HGB CONC 33.7 g/dL (33.2-36.2); MEAN CORPUSCULAR VOLUME 93.9 fL (81-97); MEAN PLATELET VOLUME 7.5 fL (7.4-10.4); MONOCYTES # (AUTO) 0.71 x10^3/uL (0.2-0.8); MONOCYTES % (AUTO) 9 % (2-9); NEUTROPHILS # (AUTO) 6.35 x10^3/uL (1.8-6.8); NEUTROPHILS % (AUTO) 76 % (42-75); PLATELET COUNT 142 x10^3/uL (130-400); RED BLOOD COUNT 2.62 x10^6/uL (4.38-5.82); RED CELL DISTRIBUTION WIDTH 18.2 % (9.4-14.8)
[2019-11-24 05:54] LABS: ALBUMIN 1.6 g/dL (3.4-5.0); ANION GAP 8 mmol/L (5-15); CALCIUM 7.4 mg/dL (8.5-10.1); CHLORIDE 104 mmol/L (98-107)
[2019-11-24 05:57] LABS: D-DIMER (DIC) 2.27 ug/mlFEU (0.00-0.52); PROTIME 16.7 Seconds (9.6-11.5)
[2019-11-24 05:59] LABS: ALANINE AMINOTRANSFERASE 13 U/L (12-78); ALKALINE PHOSPHATASE 90 U/L (45-117); BILIRUBIN,TOTAL 6.5 mg/dL (0.2-1.0); CREATININE 1.12 mg/dL (0.7-1.3); TOTAL PROTEIN 4.6 g/dL (6.4-8.2)
[2019-11-24] MEDS: INSULIN LISPRO 100 UNITS/ML, PEN SQ-INSULIN SCH ×4 (06:54→20:15)
[2019-11-24] MEDS: ENOXAPARIN 40 MG/0.4 ML SQ SCH (08:40)
[2019-11-24] MEDS: SPIRONOLACTONE 25 MG TABLET PO SCH (08:48)
[2019-11-24] MEDS: THIAMINE 100MG TABLET PO SCH (08:48)
[2019-11-24] MEDS: SODIUM CHLORIDE FLUSH 10ML SYR IVF SCH ×2 (08:48→20:15)
[2019-11-24] MEDS: PANTOPRAZOLE 40 MG IV IV SCH (08:48)
[2019-11-24] MEDS: FOLIC ACID 1 MG TABLET PO SCH (08:48)
[2019-11-24] MEDS: LACTULOSE 10 GM/15 ML UDC PO SCH ×2 (08:50→20:15)
[2019-11-24] MEDS ORDERED: LIDOCAINE 1%, 10ML ONE (09:02)
[2019-11-24] MEDS: DAPTOMYCIN 450 MG in SODIUM CHLORIDE 0.9% 100 ML IV SCH (13:49)
[2019-11-25] MEDS: ALBUTEROL/IPRATROPIUM 2.5MG/0.5MG, 3 ML INLINE SCH ×6 (02:40→22:30)
[2019-11-25 04:00] VITALS: BP 107/59
[2019-11-25 04:29] LABS: BASOPHILS # (AUTO) 0.05 x10^3/uL (0-0.1); BASOPHILS % (AUTO) 1 % (0-1); EOSINOPHILS # (AUTO) 0.06 x10^3/uL (0-0.4); EOSINOPHILS % (AUTO) 1 % (1-7); LYMPHOCYTES # (AUTO) 1.03 x10^3/uL (1-3.4); LYMPHOCYTES % (AUTO) 12 % (22-44); MD NO; MEAN CORPUSCULAR HEMOGLOBIN 31.6 pg (27.5-34.5); MEAN CORPUSCULAR HGB CONC 33.8 g/dL (33.2-36.2); MEAN CORPUSCULAR VOLUME 93.6 fL (81-97); MEAN PLATELET VOLUME 7.7 fL (7.4-10.4); MONOCYTES # (AUTO) 0.57 x10^3/uL (0.2-0.8); MONOCYTES % (AUTO) 7 % (2-9); NEUTROPHILS # (AUTO) 6.99 x10^3/uL (1.8-6.8); NEUTROPHILS % (AUTO) 80 % (42-75); PLATELET COUNT 152 x10^3/uL (130-400); RED BLOOD COUNT 2.75 x10^6/uL (4.38-5.82)
[2019-11-25] MEDS: FENTANYL PF 100 MCG/2ML IVPush PRN ×2 (04:33→20:10)
[2019-11-25 04:41] LABS: ANION GAP 9 mmol/L (5-15); CALCIUM 7.7 mg/dL (8.5-10.1); CHLORIDE 105 mmol/L (98-107)
[2019-11-25 04:42] LABS: CREATININE 1.15 mg/dL (0.7-1.3)
[2019-11-25] MEDS: PANTOPRAZOLE 40 MG IV IV SCH (08:05)
[2019-11-25] MEDS: FOLIC ACID 1 MG TABLET PO SCH (08:05)
[2019-11-25] MEDS: SPIRONOLACTONE 25 MG TABLET PO SCH (08:05)
[2019-11-25] MEDS: INSULIN LISPRO 100 UNITS/ML, PEN SQ-INSULIN SCH ×4 (08:05→21:00)
[2019-11-25] MEDS: THIAMINE 100MG TABLET PO SCH (08:05)
[2019-11-25] MEDS: LACTULOSE 10 GM/15 ML UDC PO SCH ×2 (08:05→21:28)
[2019-11-25] MEDS: SODIUM CHLORIDE FLUSH 10ML SYR IVF SCH ×2 (08:06→21:28)
[2019-11-25] MEDS: ENOXAPARIN 40 MG/0.4 ML SQ SCH (09:13)
[2019-11-25] MEDS: FUROSEMIDE 20 MG/2 ML IV SCH ×2 (09:13→21:28)
[2019-11-25] MEDS: CEFTAROLINE 600 MG in SODIUM CHLORIDE 0.9% 100 ML IV SCH ×2 (11:05→18:46)
--- NOTE | 2019-11-25 13:07 | NUR ---
TF GOAL: PROMOTE @ 65ML/HR
[2019-11-25] MEDS: DEXMEDETOMIDINE 400 MCG in SODIUM CHLORIDE 0.9% 96 ML IV PRN (20:22)
[2019-11-25] MEDS ORDERED: SODIUM CHLORIDE 0.9%, 500ML IVBOLUS ONE (23:30)
[2019-11-26] MEDS ORDERED: SODIUM CHLORIDE 0.9%, 500ML IVBOLUS ONE
[2019-11-26] MEDS ORDERED: ALBUMIN HUMAN 25% 100 ML IV ONE (00:30)
[2019-11-26] MEDS ORDERED: ALBUMIN HUMAN 25% 100 ML ONE (00:32)
[2019-11-26] MEDS: FENTANYL PF 100 MCG/2ML IVPush PRN ×5 (00:36→21:41)
[2019-11-26] MEDS: ALBUTEROL/IPRATROPIUM 2.5MG/0.5MG, 3 ML INLINE SCH ×6 (02:40→22:14)
[2019-11-26] MEDS: CEFTAROLINE 600 MG in SODIUM CHLORIDE 0.9% 100 ML IV SCH ×3 (03:15→19:06)
[2019-11-26] MEDS: DEXMEDETOMIDINE 400 MCG in SODIUM CHLORIDE 0.9% 96 ML IV PRN (03:33)
[2019-11-26 05:15] LABS: BASOPHILS # (AUTO) 0.02 x10^3/uL (0-0.1); BASOPHILS % (AUTO) 0 % (0-1); EOSINOPHILS # (AUTO) 0.05 x10^3/uL (0-0.4); EOSINOPHILS % (AUTO) 1 % (1-7); LYMPHOCYTES # (AUTO) 0.56 x10^3/uL (1-3.4); LYMPHOCYTES % (AUTO) 14 % (22-44); MD NO; MEAN CORPUSCULAR HGB CONC 33.1 g/dL (33.2-36.2); MEAN CORPUSCULAR VOLUME 93.7 fL (81-97); MEAN PLATELET VOLUME 7.4 fL (7.4-10.4); MONOCYTES # (AUTO) 0.26 x10^3/uL (0.2-0.8); MONOCYTES % (AUTO) 6 % (2-9); NEUTROPHILS # (AUTO) 3.23 x10^3/uL (1.8-6.8); NEUTROPHILS % (AUTO) 79 % (42-75); PLATELET COUNT 113 x10^3/uL (130-400); RED BLOOD COUNT 2.68 x10^6/uL (4.38-5.82); RED CELL DISTRIBUTION WIDTH 19.1 % (9.4-14.8)
[2019-11-26 05:23] LABS: ANION GAP 9 mmol/L (5-15); CALCIUM 7.7 mg/dL (8.5-10.1); CHLORIDE 109 mmol/L (98-107); CREATININE 1.12 mg/dL (0.7-1.3); TRIGLYCERIDES 29 mg/dL (50-200)
[2019-11-26] MEDS: FUROSEMIDE 20 MG/2 ML IV SCH ×2 (07:59→21:44)
[2019-11-26] MEDS: PANTOPRAZOLE 40 MG IV IV SCH (07:59)
[2019-11-26] MEDS: SODIUM CHLORIDE FLUSH 10ML SYR IVF SCH ×2 (08:00→21:44)
[2019-11-26] MEDS: FOLIC ACID 1 MG TABLET PO SCH (08:00)
[2019-11-26] MEDS: LACTULOSE 10 GM/15 ML UDC PO SCH ×2 (08:00→21:43)
[2019-11-26] MEDS: ENOXAPARIN 40 MG/0.4 ML SQ SCH (08:00)
[2019-11-26] MEDS: SPIRONOLACTONE 25 MG TABLET PO SCH (08:08)
[2019-11-26] MEDS: THIAMINE 100MG TABLET PO SCH (08:08)
[2019-11-26] MEDS: INSULIN LISPRO 100 UNITS/ML, PEN SQ-INSULIN SCH ×3 (08:09→21:00)
[2019-11-26 09:45] LABS: FREE T4 (FREE THYROXINE) 1.23 ng/dL (0.76-1.46)
[2019-11-27] MEDS: DEXMEDETOMIDINE 400 MCG in SODIUM CHLORIDE 0.9% 96 ML IV PRN (00:23)
[2019-11-27] MEDS: ALBUTEROL/IPRATROPIUM 2.5MG/0.5MG, 3 ML INLINE SCH ×4 (01:05→14:51)
[2019-11-27] MEDS: INSULIN LISPRO 100 UNITS/ML, PEN SQ-INSULIN SCH ×2 (03:00→08:23)
[2019-11-27] MEDS: CEFTAROLINE 600 MG in SODIUM CHLORIDE 0.9% 100 ML IV SCH ×3 (03:19→18:44)
[2019-11-27 04:42] LABS: ANION GAP 6 mmol/L (5-15); CALCIUM 7.7 mg/dL (8.5-10.1); CHLORIDE 112 mmol/L (98-107)
[2019-11-27 06:39] LABS: MEAN CORPUSCULAR HEMOGLOBIN 30.9 pg (27.5-34.5); MEAN CORPUSCULAR HGB CONC 32.5 g/dL (33.2-36.2); MEAN CORPUSCULAR VOLUME 95.1 fL (81-97); MEAN PLATELET VOLUME 8.1 fL (7.4-10.4); PLATELET COUNT 104 x10^3/uL (130-400); RED BLOOD COUNT 2.56 x10^6/uL (4.38-5.82); RED CELL DISTRIBUTION WIDTH 18.6 % (9.4-14.8)
[2019-11-27 06:40] LABS: BASOPHILS # (AUTO) 0.01 x10^3/uL (0-0.1); BASOPHILS % (AUTO) 0 % (0-1); EOSINOPHILS # (AUTO) 0.04 x10^3/uL (0-0.4); EOSINOPHILS % (AUTO) 1 % (1-7); LYMPHOCYTES # (AUTO) 0.48 x10^3/uL (1-3.4); LYMPHOCYTES % (AUTO) 11 % (22-44); MD SCAN; MONOCYTES # (AUTO) 0.34 x10^3/uL (0.2-0.8); MONOCYTES % (AUTO) 8 % (2-9); NEUTROPHILS # (AUTO) 3.49 x10^3/uL (1.8-6.8); NEUTROPHILS % (AUTO) 80 % (42-75)
[2019-11-27] MEDS: PANTOPRAZOLE 40 MG IV IV SCH (08:21)
[2019-11-27] MEDS: FUROSEMIDE 20 MG/2 ML IV SCH ×2 (08:21→21:41)
[2019-11-27] MEDS: LACTULOSE 10 GM/15 ML UDC PO SCH ×2 (08:22→21:00)
[2019-11-27] MEDS: POTASSIUM CHLORIDE 10% 40 MEQ/30 ML UDC PO SCH ×2 (08:22→21:41)
[2019-11-27] MEDS: FOLIC ACID 1 MG TABLET PO SCH (08:22)
[2019-11-27] MEDS: SPIRONOLACTONE 25 MG TABLET PO SCH (08:22)
[2019-11-27] MEDS: ENOXAPARIN 40 MG/0.4 ML SQ SCH (08:22)
[2019-11-27] MEDS: SODIUM CHLORIDE FLUSH 10ML SYR IVF SCH (08:22)
[2019-11-27] MEDS: THIAMINE 100MG TABLET PO SCH (08:22)
[2019-11-27] MEDS ORDERED: FENTANYL PF 100 MCG/2ML ONE (08:45)
[2019-11-27] MEDS ORDERED: BACITRACIN 50,000 UNIT ONE (08:49)
[2019-11-27] MEDS ORDERED: PROPOFOL 10 MG/ML, 20ML ONE (09:10)
[2019-11-27] MEDS ORDERED: EPINEPHRINE 1 MG/ML, 1ML ONE (09:10)
[2019-11-27] MEDS: OXYcodone IR 5MG TABLET PO PRN ×3 (14:59→23:08)
[2019-11-27] MEDS ORDERED: ALBUMIN HUMAN 25% 100 ML ONE (15:38)
[2019-11-27] MEDS ORDERED: ALBUMIN HUMAN 25% 100 ML IV ONE (16:00)
[2019-11-28] MEDS: CEFTAROLINE 600 MG in SODIUM CHLORIDE 0.9% 100 ML IV SCH ×3 (02:38→19:56)
[2019-11-28] MEDS: OXYcodone IR 5MG TABLET PO PRN ×5 (03:17→23:26)
[2019-11-28 04:25] LABS: ANION GAP 6 mmol/L (5-15); CALCIUM 7.7 mg/dL (8.5-10.1); CHLORIDE 114 mmol/L (98-107); CREATININE 1.12 mg/dL (0.7-1.3)
[2019-11-28 04:33] LABS: MEAN CORPUSCULAR HEMOGLOBIN 31.1 pg (27.5-34.5); MEAN CORPUSCULAR HGB CONC 32.6 g/dL (33.2-36.2); MEAN CORPUSCULAR VOLUME 95.7 fL (81-97); RED BLOOD COUNT 2.62 x10^6/uL (4.38-5.82); RED CELL DISTRIBUTION WIDTH 19.2 % (9.4-14.8)
[2019-11-28 05:24] LABS: BASOPHILS # (AUTO) 0.01 x10^3/uL (0-0.1); BASOPHILS % (AUTO) 0 % (0-1); EOSINOPHILS % (AUTO) 2 % (1-7); LYMPHOCYTES # (AUTO) 0.57 x10^3/uL (1-3.4); LYMPHOCYTES % (AUTO) 11 % (22-44); MD SCAN; MEAN PLATELET VOLUME 8.1 fL (7.4-10.4); MONOCYTES # (AUTO) 0.46 x10^3/uL (0.2-0.8); MONOCYTES % (AUTO) 9 % (2-9); NEUTROPHILS # (AUTO) 4.24 x10^3/uL (1.8-6.8); NEUTROPHILS % (AUTO) 79 % (42-75); PLATELET COUNT 100 x10^3/uL (130-400)
[2019-11-28] MEDS: PANTOPRAZOLE 40 MG IV IV SCH (08:57)
[2019-11-28] MEDS: FUROSEMIDE 20 MG/2 ML IV SCH ×2 (08:57→19:57)
[2019-11-28] MEDS: THIAMINE 100MG TABLET PO SCH (08:57)
[2019-11-28] MEDS: SPIRONOLACTONE 25 MG TABLET PO SCH (08:57)
[2019-11-28] MEDS: LACTULOSE 10 GM/15 ML UDC PO SCH ×2 (08:58→19:58)
[2019-11-28] MEDS: FOLIC ACID 1 MG TABLET PO SCH (08:59)
[2019-11-28] MEDS: ENOXAPARIN 40 MG/0.4 ML SQ SCH (08:59)
[2019-11-28 12:10] VITALS: BP 115/65
[2019-11-28] MEDS: ONDANSETRON 2MG/ML, 2ML IVPush PRN (14:19)
[2019-11-28 16:00] VITALS: BP 126/62
[2019-11-28 19:30] VITALS: BP 109/60
[2019-11-29 00:45] VITALS: BP 98/61
[2019-11-29] MEDS: CEFTAROLINE 600 MG in SODIUM CHLORIDE 0.9% 100 ML IV SCH ×3 (04:19→19:59)
[2019-11-29] MEDS: OXYcodone IR 5MG TABLET PO PRN ×5 (04:30→22:53)
[2019-11-29 05:53] LABS: ANION GAP 6 mmol/L (5-15); CALCIUM 8.1 mg/dL (8.5-10.1); CHLORIDE 114 mmol/L (98-107)
[2019-11-29 05:55] LABS: MEAN CORPUSCULAR HGB CONC 33.5 g/dL (33.2-36.2); MEAN CORPUSCULAR VOLUME 95.6 fL (81-97); RED BLOOD COUNT 3.07 x10^6/uL (4.38-5.82); RED CELL DISTRIBUTION WIDTH 18.7 % (9.4-14.8)
[2019-11-29 05:56] LABS: CREATININE 1.09 mg/dL (0.7-1.3)
[2019-11-29 06:27] LABS: PLATELET COUNT 112 x10^3/uL (130-400)
[2019-11-29 06:31] LABS: MD MORPH REVIEW ONLY
[2019-11-29 06:32] LABS: ANISOCYTOSIS 1+; BASOPHILS # (AUTO) 0.01 x10^3/uL (0-0.1); BASOPHILS % (AUTO) 0 % (0-1); EOSINOPHILS # (AUTO) 0.14 x10^3/uL (0-0.4); EOSINOPHILS % (AUTO) 3 % (1-7); LYMPHOCYTES # (AUTO) 0.89 x10^3/uL (1-3.4); LYMPHOCYTES % (AUTO) 17 % (22-44); MONOCYTES # (AUTO) 0.43 x10^3/uL (0.2-0.8); MONOCYTES % (AUTO) 8 % (2-9); NEUTROPHILS # (AUTO) 3.69 x10^3/uL (1.8-6.8); NEUTROPHILS % (AUTO) 72 % (42-75)
[2019-11-29 06:35] LABS: <PLATELET ESTIMATE> ADEQUATE; <PLT MORPHOLOGY> NORMAL PLT MORPH; OVALOCYTES 1+
[2019-11-29 07:03] VITALS: BP 112/67
[2019-11-29] MEDS: PANTOPRAZOLE 40 MG IV IV SCH (08:41)
[2019-11-29] MEDS: FUROSEMIDE 20 MG/2 ML IV SCH ×2 (08:41→19:58)
[2019-11-29] MEDS: FOLIC ACID 1 MG TABLET PO SCH (08:42)
[2019-11-29] MEDS: ENOXAPARIN 40 MG/0.4 ML SQ SCH (08:42)
[2019-11-29] MEDS: SPIRONOLACTONE 25 MG TABLET PO SCH (08:42)
[2019-11-29] MEDS: THIAMINE 100MG TABLET PO SCH (08:43)
[2019-11-29] MEDS: LACTULOSE 10 GM/15 ML UDC PO SCH ×2 (08:43→19:59)
[2019-11-29 12:53] VITALS: BP 116/66
[2019-11-29 19:33] VITALS: BP 98/69
[2019-11-30 01:12] VITALS: BP 128/68
[2019-11-30] MEDS: OXYcodone IR 5MG TABLET PO PRN ×4 (03:21→20:50)
[2019-11-30] MEDS: CEFTAROLINE 600 MG in SODIUM CHLORIDE 0.9% 100 ML IV SCH ×3 (03:22→21:05)
[2019-11-30 05:14] LABS: ANION GAP 9 mmol/L (5-15); CALCIUM 8.2 mg/dL (8.5-10.1); CHLORIDE 112 mmol/L (98-107)
[2019-11-30 05:15] LABS: MEAN CORPUSCULAR HEMOGLOBIN 31.5 pg (27.5-34.5); MEAN CORPUSCULAR HGB CONC 32.8 g/dL (33.2-36.2); MEAN CORPUSCULAR VOLUME 96.1 fL (81-97); MEAN PLATELET VOLUME 7.7 fL (7.4-10.4); PLATELET COUNT 98 x10^3/uL (130-400); RED CELL DISTRIBUTION WIDTH 18.8 % (9.4-14.8)
[2019-11-30 05:16] LABS: CREATININE 1.41 mg/dL (0.7-1.3)
[2019-11-30 05:43] LABS: BASOPHILS # (AUTO) 0.06 x10^3/uL (0-0.1); BASOPHILS % (AUTO) 1 % (0-1); EOSINOPHILS # (AUTO) 0.25 x10^3/uL (0-0.4); EOSINOPHILS % (AUTO) 4 % (1-7); LYMPHOCYTES # (AUTO) 0.94 x10^3/uL (1-3.4); LYMPHOCYTES % (AUTO) 15 % (22-44); MD SCAN; MONOCYTES # (AUTO) 0.57 x10^3/uL (0.2-0.8); MONOCYTES % (AUTO) 9 % (2-9); NEUTROPHILS # (AUTO) 4.37 x10^3/uL (1.8-6.8); NEUTROPHILS % (AUTO) 71 % (42-75)
[2019-11-30 06:47] VITALS: BP 109/52
[2019-11-30] MEDS: SPIRONOLACTONE 25 MG TABLET PO SCH (08:06)
[2019-11-30] MEDS: PANTOPRAZOLE 40 MG IV IV SCH (08:07)
[2019-11-30] MEDS: FUROSEMIDE 20 MG/2 ML IV SCH ×2 (08:07→20:51)
[2019-11-30] MEDS: FOLIC ACID 1 MG TABLET PO SCH (08:07)
[2019-11-30] MEDS: THIAMINE 100MG TABLET PO SCH (08:07)
[2019-11-30] MEDS: ENOXAPARIN 40 MG/0.4 ML SQ SCH (08:07)
[2019-11-30] MEDS: LACTULOSE 10 GM/15 ML UDC PO SCH ×2 (08:08→20:43)
[2019-11-30 12:57] VITALS: BP 128/52
[2019-11-30 19:27] VITALS: BP 143/65
[2019-11-30] MEDS: TRAZODONE 50MG TABLET PO PRN (20:50)
[2019-12-01 00:59] VITALS: BP 114/56
[2019-12-01] MEDS: OXYcodone IR 5MG TABLET PO PRN ×5 (00:59→17:14)
[2019-12-01] MEDS: CEFTAROLINE 600 MG in SODIUM CHLORIDE 0.9% 100 ML IV SCH ×3 (04:40→20:19)
[2019-12-01 06:05] LABS: ANION GAP 7 mmol/L (5-15); CALCIUM 7.7 mg/dL (8.5-10.1); CHLORIDE 111 mmol/L (98-107)
[2019-12-01 06:06] LABS: CREATININE 1.38 mg/dL (0.7-1.3)
[2019-12-01 06:45] VITALS: BP 159/66
[2019-12-01 07:34] LABS: MEAN CORPUSCULAR HEMOGLOBIN 31.1 pg (27.5-34.5); MEAN CORPUSCULAR HGB CONC 32.3 g/dL (33.2-36.2); MEAN CORPUSCULAR VOLUME 96.2 fL (81-97); RED BLOOD COUNT 2.66 x10^6/uL (4.38-5.82); RED CELL DISTRIBUTION WIDTH 18.3 % (9.4-14.8)
[2019-12-01 07:58] LABS: BASOPHILS # (AUTO) 0.05 x10^3/uL (0-0.1); BASOPHILS % (AUTO) 1 % (0-1); EOSINOPHILS # (AUTO) 0.13 x10^3/uL (0-0.4); EOSINOPHILS % (AUTO) 3 % (1-7); LYMPHOCYTES # (AUTO) 0.87 x10^3/uL (1-3.4); LYMPHOCYTES % (AUTO) 20 % (22-44); MD SCAN; MONOCYTES # (AUTO) 0.31 x10^3/uL (0.2-0.8); MONOCYTES % (AUTO) 7 % (2-9); NEUTROPHILS # (AUTO) 2.99 x10^3/uL (1.8-6.8); NEUTROPHILS % (AUTO) 69 % (42-75); PLATELET COUNT 71 x10^3/uL (130-400)
[2019-12-01] MEDS: PANTOPRAZOLE 40 MG IV IV SCH (08:45)
[2019-12-01] MEDS: FOLIC ACID 1 MG TABLET PO SCH (08:45)
[2019-12-01] MEDS: THIAMINE 100MG TABLET PO SCH (08:45)
[2019-12-01] MEDS: FUROSEMIDE 20 MG/2 ML IV SCH (08:46)
[2019-12-01] MEDS: SPIRONOLACTONE 25 MG TABLET PO SCH (08:46)
[2019-12-01] MEDS: LACTULOSE 10 GM/15 ML UDC PO SCH ×2 (08:48→20:46)
[2019-12-01] MEDS: ENOXAPARIN 40 MG/0.4 ML SQ SCH (09:00)
[2019-12-01] MEDS: POTASSIUM CHLORIDE 20 MEQ TAB.ER.PRT PO SCH ×2 (10:00→13:13)
[2019-12-01 13:00] VITALS: BP 100/65
[2019-12-01 16:26] VITALS: BP 106/65
[2019-12-01 18:39] VITALS: BP 119/70
[2019-12-01] MEDS: TRAZODONE 50MG TABLET PO PRN (20:44)
[2019-12-02 01:14] VITALS: BP 142/65
[2019-12-02] MEDS: CEFTAROLINE 600 MG in SODIUM CHLORIDE 0.9% 100 ML IV SCH ×3 (03:57→22:30)
[2019-12-02] MEDS: OXYcodone IR 5MG TABLET PO PRN ×3 (03:58→22:31)
[2019-12-02 04:56] LABS: HCT (SEDRATE) 23.9 % (39.2-51.8)
[2019-12-02 05:04] LABS: CHLORIDE 110 mmol/L (98-107)
[2019-12-02 05:16] LABS: ALANINE AMINOTRANSFERASE 20 U/L (12-78); ALBUMIN 1.9 g/dL (3.4-5.0); ALKALINE PHOSPHATASE 105 U/L (45-117); ANION GAP 7 mmol/L (5-15); BILIRUBIN,TOTAL 2.1 mg/dL (0.2-1.0); CALCIUM 7.5 mg/dL (8.5-10.1); CREATININE 1.26 mg/dL (0.7-1.3); TOTAL PROTEIN 5.1 g/dL (6.4-8.2)
[2019-12-02 06:14] LABS: BASOPHILS # (AUTO) 0.04 x10^3/uL (0-0.1); BASOPHILS % (AUTO) 1 % (0-1); EOSINOPHILS # (AUTO) 0.11 x10^3/uL (0-0.4); EOSINOPHILS % (AUTO) 3 % (1-7); LYMPHOCYTES # (AUTO) 0.61 x10^3/uL (1-3.4); LYMPHOCYTES % (AUTO) 16 % (22-44); MD MORPH REVIEW ONLY; MEAN CORPUSCULAR HEMOGLOBIN 31.5 pg (27.5-34.5); MEAN CORPUSCULAR HGB CONC 32.8 g/dL (33.2-36.2); MEAN CORPUSCULAR VOLUME 95.9 fL (81-97); MEAN PLATELET VOLUME 8.1 fL (7.4-10.4); MONOCYTES # (AUTO) 0.32 x10^3/uL (0.2-0.8); MONOCYTES % (AUTO) 8 % (2-9); NEUTROPHILS % (AUTO) 72 % (42-75); PLATELET COUNT 50 x10^3/uL (130-400); RED BLOOD COUNT 2.49 x10^6/uL (4.38-5.82)
[2019-12-02 06:15] LABS: <PLATELET ESTIMATE> DECREASED; <PLT MORPHOLOGY> NORMAL PLT MORPH; ANISOCYTOSIS 1+; ECHINOCYTES 1+; OVALOCYTES 1+
[2019-12-02 06:16] LABS: SCHISTOCYTES 1+
[2019-12-02 06:26] VITALS: BP 90/58
[2019-12-02] MEDS: THIAMINE 100MG TABLET PO SCH (09:09)
[2019-12-02] MEDS: FUROSEMIDE 40 MG TABLET PO SCH (09:09)
[2019-12-02] MEDS: POTASSIUM CHLORIDE 10 MEQ TABLET.ER PO SCH (09:09)
[2019-12-02] MEDS: FOLIC ACID 1 MG TABLET PO SCH (09:09)
[2019-12-02] MEDS: SPIRONOLACTONE 25 MG TABLET PO SCH (09:10)
[2019-12-02] MEDS: PANTOPRAZOLE 40 MG IV IV SCH (09:10)
[2019-12-02] MEDS: LACTULOSE 10 GM/15 ML UDC PO SCH ×2 (09:10→19:11)
[2019-12-02 13:27] VITALS: BP 99/56
[2019-12-02 19:27] VITALS: BP 113/59
[2019-12-02] MEDS: TRAZODONE 50MG TABLET PO PRN (22:31)
[2019-12-03 00:57] VITALS: BP 118/63
[2019-12-03] MEDS: PANTOPROZOLE 40MG TABLET PO SCH (06:03)
[2019-12-03] MEDS: OXYcodone IR 5MG TABLET PO PRN ×2 (06:04→22:35)
[2019-12-03] MEDS: CEFTAROLINE 600 MG in SODIUM CHLORIDE 0.9% 100 ML IV SCH (06:05)
[2019-12-03 06:42] VITALS: BP 93/46
[2019-12-03 07:22] LABS: MEAN CORPUSCULAR HEMOGLOBIN 32.2 pg (27.5-34.5); MEAN CORPUSCULAR HGB CONC 33.1 g/dL (33.2-36.2); MEAN CORPUSCULAR VOLUME 97.2 fL (81-97); MEAN PLATELET VOLUME 8.6 fL (7.4-10.4); PLATELET COUNT 56 x10^3/uL (130-400); RED BLOOD COUNT 2.67 x10^6/uL (4.38-5.82); RED CELL DISTRIBUTION WIDTH 18.7 % (9.4-14.8)
[2019-12-03 07:23] LABS: ANION GAP 7 mmol/L (5-15); CALCIUM 7.6 mg/dL (8.5-10.1); CHLORIDE 110 mmol/L (98-107); CREATININE 1.21 mg/dL (0.7-1.3)
[2019-12-03 07:57] LABS: BASOPHILS # (AUTO) 0.03 x10^3/uL (0-0.1); BASOPHILS % (AUTO) 1 % (0-1); EOSINOPHILS % (AUTO) 3 % (1-7); LYMPHOCYTES # (AUTO) 0.55 x10^3/uL (1-3.4); LYMPHOCYTES % (AUTO) 15 % (22-44); MD SCAN; MONOCYTES # (AUTO) 0.27 x10^3/uL (0.2-0.8); MONOCYTES % (AUTO) 8 % (2-9); NEUTROPHILS # (AUTO) 2.61 x10^3/uL (1.8-6.8); NEUTROPHILS % (AUTO) 74 % (42-75)
[2019-12-03] MEDS: POTASSIUM CHLORIDE 10 MEQ TABLET.ER PO SCH (08:54)
[2019-12-03] MEDS: FUROSEMIDE 40 MG TABLET PO SCH (08:54)
[2019-12-03] MEDS: THIAMINE 100MG TABLET PO SCH (08:54)
[2019-12-03] MEDS: FOLIC ACID 1 MG TABLET PO SCH (08:54)
[2019-12-03] MEDS: SPIRONOLACTONE 25 MG TABLET PO SCH (08:54)
[2019-12-03] MEDS: LACTULOSE 10 GM/15 ML UDC PO SCH ×2 (08:55→21:00)
[2019-12-03] MEDS ORDERED: DAPTOMYCIN 420 MG in SODIUM CHLORIDE 0.9% 100 ML IVPB SCH (10:00)
[2019-12-03] MEDS: DAPTOMYCIN 450 MG in SODIUM CHLORIDE 0.9% 100 ML IVPB SCH (11:25)
[2019-12-03 14:02] VITALS: BP 149/74
[2019-12-03 19:36] VITALS: BP 115/62
[2019-12-03] MEDS: TRAZODONE 50MG TABLET PO PRN (22:34)
[2019-12-04 00:24] VITALS: BP 119/65
[2019-12-04] MEDS: OXYcodone IR 5MG TABLET PO PRN (05:02)
[2019-12-04] MEDS: PANTOPROZOLE 40MG TABLET PO SCH (05:31)
[2019-12-04 05:59] LABS: ANION GAP 7 mmol/L (5-15); CALCIUM 7.8 mg/dL (8.5-10.1); CHLORIDE 109 mmol/L (98-107); MEAN CORPUSCULAR HEMOGLOBIN 31.6 pg (27.5-34.5); MEAN CORPUSCULAR HGB CONC 32.9 g/dL (33.2-36.2); MEAN PLATELET VOLUME 9.2 fL (7.4-10.4); PLATELET COUNT 83 x10^3/uL (130-400); RED BLOOD COUNT 2.84 x10^6/uL (4.38-5.82); RED CELL DISTRIBUTION WIDTH 18.2 % (9.4-14.8)
[2019-12-04 06:02] LABS: CREATININE 1.12 mg/dL (0.7-1.3)
[2019-12-04 06:18] LABS: BASOPHILS # (AUTO) 0.05 x10^3/uL (0-0.1); BASOPHILS % (AUTO) 1 % (0-1); EOSINOPHILS # (AUTO) 0.08 x10^3/uL (0-0.4); EOSINOPHILS % (AUTO) 2 % (1-7); LYMPHOCYTES % (AUTO) 14 % (22-44); MD SCAN; MONOCYTES # (AUTO) 0.44 x10^3/uL (0.2-0.8); MONOCYTES % (AUTO) 8 % (2-9); NEUTROPHILS % (AUTO) 76 % (42-75)
[2019-12-04 08:29] VITALS: BP 125/72
[2019-12-04] MEDS: ONDANSETRON 2MG/ML, 2ML IVPush PRN (09:20)
[2019-12-04] MEDS: LACTULOSE 10 GM/15 ML UDC PO SCH ×2 (09:21→20:29)
[2019-12-04] MEDS: ENOXAPARIN 40 MG/0.4 ML SQ SCH (09:21)
[2019-12-04] MEDS: THIAMINE 100MG TABLET PO SCH (09:22)
[2019-12-04] MEDS: POTASSIUM CHLORIDE 10 MEQ TABLET.ER PO SCH (09:22)
[2019-12-04] MEDS: FOLIC ACID 1 MG TABLET PO SCH (09:22)
[2019-12-04] MEDS: FUROSEMIDE 40 MG TABLET PO SCH ×3 (09:22→21:00)
[2019-12-04] MEDS: SPIRONOLACTONE 25 MG TABLET PO SCH (09:42)
[2019-12-04] MEDS: DAPTOMYCIN 450 MG in SODIUM CHLORIDE 0.9% 100 ML IVPB SCH (11:40)
[2019-12-04 12:57] VITALS: BP 90/53
[2019-12-04] MEDS ORDERED: LIDOCAINE 1%, 10ML ONE (17:48)
[2019-12-04 19:16] VITALS: BP 115/69
[2019-12-05 00:49] VITALS: BP 98/62
[2019-12-05] MEDS: PANTOPROZOLE 40MG TABLET PO SCH (05:32)
[2019-12-05 06:19] LABS: ANION GAP 3 mmol/L (5-15); CALCIUM 7.6 mg/dL (8.5-10.1); CHLORIDE 109 mmol/L (98-107); CREATININE 1.35 mg/dL (0.7-1.3)
[2019-12-05 06:20] LABS: MEAN CORPUSCULAR HEMOGLOBIN 31.6 pg (27.5-34.5); MEAN CORPUSCULAR VOLUME 95.7 fL (81-97); RED BLOOD COUNT 2.44 x10^6/uL (4.38-5.82); RED CELL DISTRIBUTION WIDTH 18.5 % (9.4-14.8)
[2019-12-05 08:11] LABS: MEAN PLATELET VOLUME 9.2 fL (7.4-10.4); PLATELET COUNT 70 x10^3/uL (130-400)
[2019-12-05 08:14] LABS: LYMPHOCYTES % (AUTO) 20 % (22-44); MD MORPH REVIEW ONLY; NEUTROPHILS % (AUTO) 68 % (42-75)
[2019-12-05 08:15] LABS: <PLATELET ESTIMATE> DECREASED; <PLT MORPHOLOGY> NORMAL PLT MORPH; ANISOCYTOSIS 2+; BASOPHILS # (AUTO) 0.03 x10^3/uL (0-0.1); BASOPHILS % (AUTO) 1 % (0-1); EOSINOPHILS # (AUTO) 0.11 x10^3/uL (0-0.4); EOSINOPHILS % (AUTO) 3 % (1-7); LYMPHOCYTES # (AUTO) 0.76 x10^3/uL (1-3.4); MONOCYTES # (AUTO) 0.36 x10^3/uL (0.2-0.8); MONOCYTES % (AUTO) 9 % (2-9); NEUTROPHILS # (AUTO) 2.62 x10^3/uL (1.8-6.8); OVALOCYTES 1+
[2019-12-05] MEDS: FOLIC ACID 1 MG TABLET PO SCH (09:09)
[2019-12-05] MEDS: ENOXAPARIN 40 MG/0.4 ML SQ SCH (09:09)
[2019-12-05] MEDS: THIAMINE 100MG TABLET PO SCH (09:09)
[2019-12-05] MEDS: SPIRONOLACTONE 25 MG TABLET PO SCH (09:09)
[2019-12-05] MEDS: FUROSEMIDE 40 MG TABLET PO SCH (09:10)
[2019-12-05] MEDS: POTASSIUM CHLORIDE 10 MEQ TABLET.ER PO SCH (09:11)
[2019-12-05] MEDS: LACTULOSE 10 GM/15 ML UDC PO SCH (09:11)
[2019-12-05 09:22] VITALS: BP 96/58
[2019-12-05] MEDS: DAPTOMYCIN 450 MG in SODIUM CHLORIDE 0.9% 100 ML IVPB SCH (11:43)
[2019-12-05] MEDS ORDERED: PANT40TA5 PO (15:40)
[2019-12-05] MEDS ORDERED: THIA100T67 PO (15:40)
[2019-12-05] MEDS ORDERED: GABA300C10 PO (15:40)
[2019-12-05] MEDS ORDERED: TRAZ50TA66 PO (15:40)
[2019-12-05] MEDS ORDERED: DAPT500V6 IV (15:40)
[2019-12-05] MEDS ORDERED: LACT10SO24 PO (15:40)
[2019-12-05] MEDS ORDERED: MAGN400T26 PO (15:40)
[2019-12-05] MEDS ORDERED: MULT1TAB60 PO (15:40)
[2019-12-05] MEDS ORDERED: SPIR25TA PO (15:40)
[2019-12-05] MEDS ORDERED: OXYC5TAB3 PO (15:40)
[2019-12-05] MEDS ORDERED: FOLI-17 PO (15:40)
[2019-12-05] MEDS ORDERED: FURO40TA6 PO (15:40)
[2019-12-05] MEDS ORDERED: POTA10TA5 PO (15:40)
[2019-12-05 16:11] VITALS: BP 121/66
[2019-12-05] MEDS: OXYcodone IR 5MG TABLET PO PRN (17:52)
== END 2019-12-05 17:58 | DRG 853 ==
LOC: ED 16:41 → EDIP 20:37 → 4NW 23:34 → 3N 11-16 02:46 → ICU 11-23 19:25 → CCU 11-25 06:55 → 4WST 11-28 08:37 → CCU 11-28 08:43 → 4WST 11-28 10:19
PROVIDERS: ADMIT Family Medicine; ATTEND Internal Medicine
PROC: 0W9G3ZZ Drainage of Peritoneal Cavity, Percutaneous Approach (ICD-10-PCS; 2019-11-16)
PROC: 0RBK0ZZ Excision of Left Shoulder Joint, Open Approach (ICD-10-PCS; 2019-11-19)
PROC: 0KB60ZZ Excision of Left Shoulder Muscle, Open Approach (ICD-10-PCS; 2019-11-23)
PROC: 0T9B70Z Drainage of Bladder with Drainage Device, Via Natural or Artificial Opening (ICD-10-PCS; 2019-11-23)
PROC: 5A1945Z Respiratory Ventilation, 24-96 Consecutive Hours (ICD-10-PCS; principal; 2019-11-24)
PROC: 0BH17EZ Insertion of Endotracheal Airway into Trachea, Via Natural or Artificial Opening (ICD-10-PCS; 2019-11-24)
PROC: 30233N1 Transfusion of Nonautologous Red Blood Cells into Peripheral Vein, Percutaneous Approach (ICD-10-PCS; 2019-11-24)
PROC: 0W9G3ZZ Drainage of Peritoneal Cavity, Percutaneous Approach (ICD-10-PCS; 2019-11-24)
PROC: 0HQCXZZ Repair Left Upper Arm Skin, External Approach (ICD-10-PCS; 2019-11-27)
PROC: 02HV33Z Insertion of Infusion Device into Superior Vena Cava, Percutaneous Approach (ICD-10-PCS; 2019-12-03)
PROC: B5181ZA Fluoroscopy of Superior Vena Cava using Low Osmolar Contrast, Guidance (ICD-10-PCS; 2019-12-03)
PROC: B548ZZA Ultrasonography of Superior Vena Cava, Guidance (ICD-10-PCS; 2019-12-03)
DX: A41.02 Sepsis due to Methicillin resistant Staphylococcus aureus (principal); E43 Unspecified severe protein-calorie malnutrition; G93.41 Metabolic encephalopathy; J18.9 Pneumonia, unspecified organism; J96.01 Acute respiratory failure with hypoxia; N17.0 Acute kidney failure with tubular necrosis; D68.9 Coagulation defect, unspecified; E87.1 Hypo-osmolality and hyponatremia; E87.2 Acidosis; J81.1 Chronic pulmonary edema; J90 Pleural effusion, not elsewhere classified; L02.31 Cutaneous abscess of buttock; L02.414 Cutaneous abscess of left upper limb; L02.416 Cutaneous abscess of left lower limb; L03.114 Cellulitis of left upper limb; L03.317 Cellulitis of buttock; M86.8X2 Other osteomyelitis, upper arm; Z99.11 Dependence on respirator [ventilator] status; Z66 Do not resuscitate; B18.2 Chronic viral hepatitis C; D63.8 Anemia in other chronic diseases classified elsewhere; Z68.24 Body mass index [BMI] 24.0-24.9, adult; E87.6 Hypokalemia; E87.70 Fluid overload, unspecified; F10.10 Alcohol abuse, uncomplicated; F17.210 Nicotine dependence, cigarettes, uncomplicated; F19.10 Other psychoactive substance abuse, uncomplicated; K70.31 Alcoholic cirrhosis of liver with ascites; K72.90 Hepatic failure, unspecified without coma; M81.0 Age-related osteoporosis without current pathological fracture; Z86.73 Personal history of transient ischemic attack (TIA), and cerebral infarction without residual deficits
CPT/HCPCS: 10061; 32555; 36415; 36600; 73030; 74018; 84145; 87806; 96374; 99285; J3490; J7620; 36573; 49083; 71045; 76705; 80048; 80053; 80074; 80076; 80202; 80307; 81001; 82040; 82533; 82550; 82728; 82803; 82962; 83540; 83550; 83605; 83690; 83735; 84100; 84439; 84443; 84466; 84478; 84481; 84484; 85025; 85049; 85379; 85384; 85610; 85651; 85730; 86140; 86850; 86900; 86923; 87040; 87070; 87077; 87081; 87086; 87147; 87186; 87205; 87521; 93005; 93308; 94002; 94003; 94640; G0378; J0171; J0295; J0690; J0696; J0712; J0878; J1100; J1170; J1650; J2250; J2405; J2704; J2710; J3010; J3370; J3411; P9047; A9575; C1751; C9113; G0475; J0330; J1815; J1940; J2060; J2270; J7030; J7040; J7050; P9016

== ENCOUNTER 2019-12-21 13:56 | Emergency (ER) | payer MEDICAID ==
[~2019-12-21] VITALS: Ht 170.2 cm; Wt 67.7 kg
[~2019-12-21 13:56] MED LIST changes: +DAPT500V6 IV; +FOLI-17 PO; +GABA300C10 PO; +LACT10SO24 PO; +MAGN400T26 PO; +MULT1TAB60 PO; +OXYC5TAB3 PO; +PANT40TA5 PO; +POTA10TA5 PO; +SPIR25TA PO; +THIA100T67 PO; +TRAZ50TA66 PO
--- NOTE | 2019-12-21 14:36 | NUR ---
LUNCH RN: LAB AT BEDSIDE FOR COLLECTION. CONSENT TO BE SIGNED
--- NOTE | 2019-12-21 14:41 | NUR ---
LUNCH RN: CONSENT SIGNED FOR PROCEDURE. VSS AT THIS TIME. PT UNDERSTANDS RISKS AND BENEFITS. CALL LIGHT WITHIN REACH. WILL CONTINUE TO MONITOR
[2019-12-21] MEDS ORDERED: LIDOCAINE 1%, 10ML ONE (14:56)
--- NOTE | 2019-12-21 14:59 | NUR ---
Pt transported on gurney to at this time. NADN. No needs expressed.
[2019-12-21 15:04] LABS: BASOPHILS # (AUTO) 0.01 x10^3/uL (0-0.1); BASOPHILS % (AUTO) 0 % (0-1); EOSINOPHILS # (AUTO) 0.02 x10^3/uL (0-0.4); EOSINOPHILS % (AUTO) 0 % (1-7); LYMPHOCYTES # (AUTO) 0.63 x10^3/uL (1-3.4); LYMPHOCYTES % (AUTO) 14 % (22-44); MD NO; MEAN CORPUSCULAR HGB CONC 32.3 g/dL (33.2-36.2); MEAN PLATELET VOLUME 7.9 fL (7.4-10.4); MONOCYTES # (AUTO) 0.35 x10^3/uL (0.2-0.8); MONOCYTES % (AUTO) 8 % (2-9); NEUTROPHILS # (AUTO) 3.65 x10^3/uL (1.8-6.8); NEUTROPHILS % (AUTO) 79 % (42-75); PLATELET COUNT 134 x10^3/uL (130-400); RED BLOOD COUNT 3.57 x10^6/uL (4.38-5.82); RED CELL DISTRIBUTION WIDTH 16.7 % (9.4-14.8)
[2019-12-21 15:18] LABS: ALANINE AMINOTRANSFERASE 24 U/L (12-78); ALBUMIN 2.1 g/dL (3.4-5.0); ANION GAP 9 mmol/L (5-15); CHLORIDE 99 mmol/L (98-107)
[2019-12-21 15:21] LABS: ALKALINE PHOSPHATASE 136 U/L (45-117); BILIRUBIN,TOTAL 3.4 mg/dL (0.2-1.0); TOTAL PROTEIN 6.7 g/dL (6.4-8.2)
[2019-12-21 15:24] LABS: INTERNATIONAL NORMALIZED RATIO 1.51 (0.93-1.1); PROTHROMBIN TIME 16.1 Seconds (9.6-11.5)
[2019-12-21] MEDS ORDERED: POTASSIUM CHLORIDE 20 MEQ TAB.ER.PRT PO ONE (15:30)
[2019-12-21] MEDS ORDERED: MAGNESIUM OXIDE 400 MG TABLET PO ONE (15:30)
[2019-12-21] MEDS ORDERED: MAGNESIUM OXIDE 400 MG TABLET ONE (15:47)
[2019-12-21] MEDS ORDERED: POTASSIUM CHLORIDE 20 MEQ TAB.ER.PRT ONE (15:47)
--- NOTE | 2019-12-21 15:56 | NUR ---
Pt back to room from IR. Pt resting on gurney connected to all monitors. No needs expressed. Pt reports feeling "a lot better". Provided pt medication per EMAR. Call light within reach.
--- NOTE | 2019-12-21 16:41 | NUR ---
THROUGHPUT: PT TO BE TRANSFERRED BACK TO [facility] [place] ~1700 TODAY PER FINA.
--- NOTE | 2019-12-21 17:21 | NUR ---
LATE NOTE ENTRY DUE TO PT CARE. Provided report to Flory HOWARD at [facility]. Updated RN on apperance of PICC line in right upper arm insertion site. Updated Flory that inseriton site appears red and appears to have a white crust around insertion site. EDMD aware. No biopatch in place. No date written on bandage. PICC line in place prior to arrival to ED.
--- NOTE | 2019-12-21 17:24 | NUR ---
Pt states prior to arrival to ED his PICC line bandage in his right upper arm had not been changed and or replaced.
--- NOTE | 2019-12-21 17:29 | NUR ---
THROUGHPUT: PT TO BE TRANSFERRED BACK TO [facility] ~1800 TODAY PER PHYLLIS.
[2019-12-21 17:45] VITALS: BP 102/57
--- NOTE | 2019-12-21 17:59 | NUR ---
Patient given discharge instructions and they have confirmed that they understand the instructions. Patient ambulatory with steady gait. Pt left with [facility] to return to [facility]. Pt left with d/c paperwork, prescription, and all presonal belongings. No other needs expressed.
== END 2019-12-21 18:02 | disposition home or self-care (01) ==
LOC: ED 16:32
DX: K70.31 Alcoholic cirrhosis of liver with ascites (principal); Z87.39 Personal history of other diseases of the musculoskeletal system and connective tissue
CPT/HCPCS: 36415; 49083; 80053; 82042; 83615; 83735; 85025; 85610; 87070; 87205; 89051; 99285; J3490

== ENCOUNTER 2019-12-31 11:07 | Inpatient (IN) | payer MEDICAID ==
[~2019-12-31] VITALS: Ht 170.2 cm; Wt 73.4 kg
[2019-12-31 12:25] LABS: BASOPHILS # (AUTO) 0.02 x10^3/uL (0-0.1); BASOPHILS % (AUTO) 0 % (0-1); EOSINOPHILS # (AUTO) 0.09 x10^3/uL (0-0.4); EOSINOPHILS % (AUTO) 2 % (1-7); LYMPHOCYTES # (AUTO) 0.94 x10^3/uL (1-3.4); LYMPHOCYTES % (AUTO) 17 % (22-44); MD NO; MEAN CORPUSCULAR HEMOGLOBIN 30.8 pg (27.5-34.5); MEAN CORPUSCULAR HGB CONC 33.6 g/dL (33.2-36.2); MEAN CORPUSCULAR VOLUME 91.7 fL (81-97); MEAN PLATELET VOLUME 7.7 fL (7.4-10.4); MONOCYTES # (AUTO) 0.45 x10^3/uL (0.2-0.8); MONOCYTES % (AUTO) 8 % (2-9); NEUTROPHILS % (AUTO) 73 % (42-75); PLATELET COUNT 142 x10^3/uL (130-400); RED BLOOD COUNT 3.52 x10^6/uL (4.38-5.82); RED CELL DISTRIBUTION WIDTH 17.7 % (9.4-14.8)
[2019-12-31 12:37] LABS: ALBUMIN 2.3 g/dL (3.4-5.0); ANION GAP 8 mmol/L (5-15); CALCIUM 8.4 mg/dL (8.5-10.1); CHLORIDE 103 mmol/L (98-107); CREATININE 1.28 mg/dL (0.7-1.3)
[2019-12-31 12:41] LABS: ALANINE AMINOTRANSFERASE 35 U/L (12-78); ALKALINE PHOSPHATASE 147 U/L (45-117); BILIRUBIN,TOTAL 3.8 mg/dL (0.2-1.0); TOTAL PROTEIN 6.8 g/dL (6.4-8.2)
[2019-12-31] MEDS ORDERED: MORPHINE SULFATE 4 MG/ML, 1ML ONE (12:41)
--- NOTE | 2019-12-31 13:31 | NUR ---
pt presents to ED after discharge from SNF 1 week ago. pt seeking to have sutures removed from surgical site to left shoulder, but states "my wound doesn't look right." 2 incisions noted to left shouler, distal sutures have dehisced. surrounding skin red. pt seen and examined by CINDY Saab. bp and spo2 monitors in place. call lihgt in reach. pt notes 7/10 pain to left shoulder, however pt states this is tolerable. lab results back, awaiting further orders at this time.
--- NOTE | 2019-12-31 13:46 | NUR ---
LAB AND IMAGING RESULTS REVIEWED WITH CINDY BOJORQUEZ. PER , PT TO BE ADMITTED. AWAITING ORDERS AT THIS TIME.
[2019-12-31] MEDS ORDERED: PHARMACOKINETIC CONSULTATION MC ONE (14:30)
[2019-12-31] MEDS ORDERED: VANCOMYCIN PER PHARMACY MC PRN ×2 (14:30→18:30)
[2019-12-31] MEDS ORDERED: AMPICILLIN/SULBACTAM 3 GM in SODIUM CHLORIDE 0.9% 100 ML IV ONE (14:30)
[2019-12-31] MEDS ORDERED: VANCOMYCIN 1,500 MG in SODIUM CHLORIDE 0.9% 250 ML IV ONE (14:30)
--- NOTE | 2019-12-31 14:30 | NUR ---
PT INFORMED OF PLAN FOR ADMISSION, PT REQUESTING TO LEAVE AMA TO CARE FOR ELDERLY MOTHER WHO IS AT HOME. PT STATES HIS BROTHER IS ARRIVING TOMORROW TO [place], PT STATES HE WILL RETURN TO ED AT THAT TIME. CINDY BOJORQUEZ NOTIFIED. CIDNY BACK AT BEDSIDE TO SPEAK WITH PATIENT REGARDING RISK OF LEAVING AMA. AFTER SPEAKING WITH MD, PT IS CHOOSING TO STAY, AND STATES HE WILL ARRANGE FOR FRIEND TO CARE FOR HIS MOTHER. THIS RN ATTEMPTED X 1 TO INSERT PIV, UNSUCCESSFUL. PT HAS VERY POOR VASCULATURE. CINDY BOJORQUEZ PLACED EJ TO RIGHT SIDE, PT TOLERATED WELL. KANNAN VALERIO NOTIFIED PT IS CHOOSING TO STAY. AWAITING ADMIT ASSESSMENT AND ORDERS. REPORT GIVEN TO ANITA CREWS WHO IS ASSUMING CARE. Addendum: 12/31/19 at 1506 by OUMAR PT INFORMED OF PLAN FOR ADMISSION, PT REQUESTING TO LEAVE AMA TO CARE FOR ELDERLY MOTHER WHO IS AT HOME. PT STATES HIS BROTHER IS ARRIVING TOMORROW TO [place], PT STATES HE WILL RETURN TO ED AT THAT TIME. CINDY BOJORQUEZ NOTIFIED. CINDY BACK AT BEDSIDE TO SPEAK WITH PATIENT REGARDING RISK OF LEAVING AMA. AFTER SPEAKING WITH MD, PT IS CHOOSING TO STAY, AND STATES HE WILL ARRANGE FOR FRIEND TO CARE FOR HIS MOTHER. THIS RN ATTEMPTED X 1 TO INSERT PIV, UNSUCCESSFUL. PT HAS VERY POOR VASCULATURE. CINDY BOJORQUEZ PLACED EJ TO LEFT SIDE, PT TOLERATED WELL. KANNAN VALERIO NOTIFIED PT IS CHOOSING TO STAY. AWAITING ADMIT ASSESSMENT AND ORDERS. REPORT GIVEN TO ANITA CREWS WHO IS ASSUMING CARE.
--- NOTE | 2019-12-31 15:00 | NUR ---
ABX INITIATED. BC X2 DRAWN PRIOR TO ADMIN. PT DENIES NEED FOR PAIN MEDICATIONS.
--- NOTE | 2019-12-31 15:04 | NUR ---
REPORT TO ANITA PAYNE ON FLOOR.
[2019-12-31] MEDS ORDERED: BACLOFEN 10 MG TABLET PO PRN (15:30)
[2019-12-31] MEDS ORDERED: ONDANSETRON 2MG/ML, 2ML IVPush PRN (15:30)
[2019-12-31] MEDS ORDERED: hydrALAzine 20 MG/ML, 1ML IVPush PRN (15:30)
[2019-12-31 15:36] VITALS: BP 144/94
[2019-12-31 16:50] VITALS: BP 144/94
[2019-12-31] MEDS ORDERED: PHARMACOKINETIC MONITORING MC PRN (18:30)
[2019-12-31] MEDS ORDERED: VANCOMYCIN 1,400 MG in SODIUM CHLORIDE 0.9% 250 ML IV SCH (18:30)
[2019-12-31 20:03] VITALS: BP 124/72
[2019-12-31] MEDS: VANCOMYCIN 1,400 MG in SODIUM CHLORIDE 0.9% 250 ML IV SCH (20:29)
[2019-12-31] MEDS: OXYcodone IR 5MG TABLET PO PRN (20:30)
[2019-12-31] MEDS: AMPICILLIN/SULBACTAM 3 GM in SODIUM CHLORIDE 0.9% 100 ML IV SCH (23:05)
[2020-01-01 00:16] VITALS: BP 112/58
[2020-01-01 06:42] VITALS: BP 126/74
[2020-01-01] MEDS: AMPICILLIN/SULBACTAM 3 GM in SODIUM CHLORIDE 0.9% 100 ML IV SCH ×2 (07:06→16:25)
[2020-01-01 08:26] LABS: MEAN CORPUSCULAR HEMOGLOBIN 30.8 pg (27.5-34.5); MEAN CORPUSCULAR HGB CONC 33.3 g/dL (33.2-36.2); MEAN CORPUSCULAR VOLUME 92.4 fL (81-97); MEAN PLATELET VOLUME 7.7 fL (7.4-10.4); PLATELET COUNT 104 x10^3/uL (130-400); RED BLOOD COUNT 3.27 x10^6/uL (4.38-5.82); RED CELL DISTRIBUTION WIDTH 17.9 % (9.4-14.8)
[2020-01-01 08:31] LABS: ANION GAP 6 mmol/L (5-15); CALCIUM 8.3 mg/dL (8.5-10.1); CHLORIDE 105 mmol/L (98-107); CREATININE 1.18 mg/dL (0.7-1.3)
[2020-01-01 08:53] LABS: BASOPHILS # (AUTO) 0.03 x10^3/uL (0-0.1); BASOPHILS % (AUTO) 1 % (0-1); EOSINOPHILS # (AUTO) 0.05 x10^3/uL (0-0.4); EOSINOPHILS % (AUTO) 1 % (1-7); LYMPHOCYTES # (AUTO) 0.49 x10^3/uL (1-3.4); LYMPHOCYTES % (AUTO) 12 % (22-44); MD MORPH REVIEW ONLY; MONOCYTES # (AUTO) 0.22 x10^3/uL (0.2-0.8); MONOCYTES % (AUTO) 5 % (2-9); NEUTROPHILS # (AUTO) 3.44 x10^3/uL (1.8-6.8); NEUTROPHILS % (AUTO) 82 % (42-75)
[2020-01-01] MEDS: OXYcodone IR 5MG TABLET PO PRN ×2 (08:53→22:23)
[2020-01-01 08:54] LABS: ANISOCYTOSIS 1+; ECHINOCYTES 1+; OVALOCYTES 1+; STOMATOCYTES 1+
[2020-01-01 08:56] LABS: <PLATELET ESTIMATE> DECREASED; <PLT MORPHOLOGY> NORMAL PLT MORPH
[2020-01-01] MEDS ORDERED: BUPIVACAINE/PF-EPI 0.5% 1:200K ONE (09:14)
[2020-01-01] MEDS ORDERED: BACITRACIN 50,000 UNIT ONE (09:14)
[2020-01-01] MEDS ORDERED: ALBUTEROL/IPRATROPIUM 2.5MG/0.5MG, 3 ML NPPB PRN (10:00)
[2020-01-01] MEDS ORDERED: MIDAZOLAM 1 MG/ML, 2ML IV PRN (10:00)
[2020-01-01] MEDS ORDERED: METOPROLOL 1 MG/ML, 5ML IV PRN (10:00)
[2020-01-01] MEDS ORDERED: hydrALAzine 20 MG/ML, 1ML IV PRN (10:00)
[2020-01-01] MEDS ORDERED: HYDROmorphone 2 MG/ML, 1ML IVPush PRN (10:00)
[2020-01-01] MEDS ORDERED: FENTANYL PF 100 MCG/2ML IV PRN (10:00)
[2020-01-01] MEDS ORDERED: MEPERIDINE/PF 25MG/ML,1ML IVPush PRN (10:00)
[2020-01-01] MEDS ORDERED: OXYcodone 5 MG/5 ML ORAL.SOL UDC PO PRN (10:00)
[2020-01-01] MEDS ORDERED: PROMETHAZINE 25 MG/ML, 1ML IV PRN (10:00)
[2020-01-01] MEDS ORDERED: PHENYLEPHRINE 10 MG/ML ONE (10:07)
[2020-01-01] MEDS ORDERED: ROCURONIUM 10 MG/ML,10ML ONE (10:07)
[2020-01-01] MEDS ORDERED: SUCCINYLCHOLINE 20 MG/ML, 10ML ONE (10:07)
[2020-01-01] MEDS ORDERED: DEXAMETHASONE 4 MG/ML, 1ML ONE (10:27)
[2020-01-01] MEDS ORDERED: CEFAZOLIN 1,000 MG ONE (10:27)
[2020-01-01] MEDS ORDERED: FENTANYL PF 100 MCG/2ML ONE (10:27)
[2020-01-01] MEDS ORDERED: MIDAZOLAM 1 MG/ML, 2ML ONE (10:27)
[2020-01-01] MEDS ORDERED: PROPOFOL 10 MG/ML, 20ML ONE (10:27)
[2020-01-01] MEDS ORDERED: ONDANSETRON 2MG/ML, 2ML ONE (10:27)
[2020-01-01] MEDS ORDERED: PROPOFOL 100 ML IV PRN (12:08)
[2020-01-01] MEDS ORDERED: PHARMACY MAY ADJ FOR RENAL FX MC SCH (12:30)
[2020-01-01] MEDS ORDERED: GLUCAGON 1 MG IM PRN (12:30)
[2020-01-01] MEDS ORDERED: BISACODYL 10 MG SUPP PR PRN (12:30)
[2020-01-01] MEDS ORDERED: LACTULOSE 20 GM/30 ML UDC NG PRN (12:30)
[2020-01-01] MEDS ORDERED: ALBUTEROL/IPRATROPIUM 2.5MG/0.5MG, 3 ML INLINE SCH (12:30)
[2020-01-01] MEDS ORDERED: SENNA/DOCUSATE TABLET NG PRN (12:30)
[2020-01-01] MEDS ORDERED: DEXTROSE 50%, 50ML SYRINGE IVPush PRN (12:30)
[2020-01-01] MEDS ORDERED: SENNA 176 MG/5 ML ORAL SOL NG PRN (12:30)
[2020-01-01] MEDS ORDERED: DEXTROSE 4 GM TAB.CHEW PO PRN (12:30)
[2020-01-01] MEDS ORDERED: FENTANYL PF 100 MCG/2ML IVPush PRN (12:30)
[2020-01-01] MEDS ORDERED: LIDOCAINE-MPF 1%, 2ML ENDO PRN (12:30)
[2020-01-01] MEDS ORDERED: VANCOMYCIN 1,400 MG in SODIUM CHLORIDE 0.9% 250 ML IV SCH (13:00)
[2020-01-01] MEDS ORDERED: VANCOMYCIN 1,500 MG in SODIUM CHLORIDE 0.9% 250 ML IV SCH (13:00)
[2020-01-01 13:08] LABS: INTERNATIONAL NORMALIZED RATIO 1.5 (0.93-1.1)
[2020-01-01] MEDS ORDERED: LIDOCAINE 1%, 20ML ONE (13:08)
[2020-01-01] MEDS ORDERED: ALBUMIN HUMAN 25% 300 ML IV ONE (15:30)
[2020-01-01] MEDS: VANCOMYCIN 1,400 MG in SODIUM CHLORIDE 0.9% 250 ML IV SCH (16:25)
[2020-01-01] MEDS: CEFEPIME 2 GM in DEXTROSE 5% 100 ML IV SCH (19:19)
[2020-01-01] MEDS: SODIUM CHLORIDE FLUSH 10ML SYR IVF SCH (21:00)
[2020-01-02 01:08] LABS: AMPHETAMINE SCREEN, URINE Negative (Negative); BARBITURATE SCREEN, URINE Negative (Negative); BENZODIAZEPINE SCREEN, URINE Positive (Negative); CANNABINOID SCREEN, URINE Negative (Negative); COCAINE SCREEN, URINE Negative (Negative); METHADONE SCREEN, URINE Negative (Negative); OPIATE SCREEN, URINE Positive (Negative)
[2020-01-02] MEDS: CEFEPIME 2 GM in DEXTROSE 5% 100 ML IV SCH ×3 (01:38→18:17)
[2020-01-02] MEDS: OXYcodone IR 5MG TABLET PO PRN (04:04)
[2020-01-02 04:25] LABS: O2 FLOW ROOM AIR L/min
[2020-01-02 04:37] LABS: MEAN CORPUSCULAR HEMOGLOBIN 30.5 pg (27.5-34.5); MEAN CORPUSCULAR HGB CONC 33.3 g/dL (33.2-36.2); MEAN CORPUSCULAR VOLUME 91.7 fL (81-97); MEAN PLATELET VOLUME 8.1 fL (7.4-10.4); PLATELET COUNT 77 x10^3/uL (130-400); RED BLOOD COUNT 2.59 x10^6/uL (4.38-5.82); RED CELL DISTRIBUTION WIDTH 17.7 % (9.4-14.8)
[2020-01-02 04:38] LABS: ANION GAP 8 mmol/L (5-15); CHLORIDE 106 mmol/L (98-107); CREATININE 1.07 mg/dL (0.7-1.3)
[2020-01-02 05:04] LABS: BASOPHILS # (AUTO) 0.01 x10^3/uL (0-0.1); BASOPHILS % (AUTO) 0 % (0-1); EOSINOPHILS # (AUTO) 0.04 x10^3/uL (0-0.4); EOSINOPHILS % (AUTO) 2 % (1-7); LYMPHOCYTES # (AUTO) 0.64 x10^3/uL (1-3.4); LYMPHOCYTES % (AUTO) 23 % (22-44); MD SCAN; MONOCYTES # (AUTO) 0.16 x10^3/uL (0.2-0.8); MONOCYTES % (AUTO) 6 % (2-9); NEUTROPHILS # (AUTO) 1.93 x10^3/uL (1.8-6.8); NEUTROPHILS % (AUTO) 69 % (42-75)
[2020-01-02 05:10] LABS: HCT (SEDRATE) 23.7 % (39.2-51.8)
[2020-01-02] MEDS: VANCOMYCIN 1,400 MG in SODIUM CHLORIDE 0.9% 250 ML IV SCH (08:12)
[2020-01-02] MEDS: SODIUM CHLORIDE FLUSH 10ML SYR IVF SCH ×2 (08:13→21:00)
[2020-01-02 11:42] LABS: MICROSCOPIC AUTO
[2020-01-02 11:56] LABS: CULTURE INDICATED? NO
[2020-01-02] MEDS: MIDODRINE 5 MG TABLET PO SCH ×2 (18:18→23:00)
[2020-01-02 21:16] VITALS: BP 111/65
[2020-01-03 02:53] VITALS: BP 97/61
[2020-01-03] MEDS: CEFEPIME 2 GM in DEXTROSE 5% 100 ML IV SCH ×3 (03:00→19:25)
[2020-01-03 05:45] LABS: ANION GAP 7 mmol/L (5-15); CALCIUM 7.9 mg/dL (8.5-10.1); CHLORIDE 107 mmol/L (98-107); CREATININE 1.11 mg/dL (0.7-1.3)
[2020-01-03 05:47] LABS: MEAN CORPUSCULAR HEMOGLOBIN 30.6 pg (27.5-34.5); MEAN CORPUSCULAR HGB CONC 32.7 g/dL (33.2-36.2); MEAN CORPUSCULAR VOLUME 93.6 fL (81-97); MEAN PLATELET VOLUME 7.7 fL (7.4-10.4); PLATELET COUNT 97 x10^3/uL (130-400); RED BLOOD COUNT 2.92 x10^6/uL (4.38-5.82); RED CELL DISTRIBUTION WIDTH 18.1 % (9.4-14.8)
[2020-01-03 06:29] LABS: <PLATELET ESTIMATE> DECREASED; ANISOCYTOSIS 1+; BASOPHILS # (AUTO) 0.04 x10^3/uL (0-0.1); BASOPHILS % (AUTO) 1 % (0-1); ECHINOCYTES 1+; EOSINOPHILS % (AUTO) 2 % (1-7); LYMPHOCYTES # (AUTO) 1.11 x10^3/uL (1-3.4); LYMPHOCYTES % (AUTO) 27 % (22-44); MD MORPH REVIEW ONLY; MONOCYTES # (AUTO) 0.34 x10^3/uL (0.2-0.8); MONOCYTES % (AUTO) 8 % (2-9); NEUTROPHILS # (AUTO) 2.51 x10^3/uL (1.8-6.8); NEUTROPHILS % (AUTO) 61 % (42-75); OVALOCYTES 1+; SCHISTOCYTES 1+
[2020-01-03 06:30] LABS: <PLT MORPHOLOGY> NORMAL PLT MORPH
[2020-01-03 07:28] VITALS: BP 98/59
[2020-01-03] MEDS: VANCOMYCIN 1,400 MG in SODIUM CHLORIDE 0.9% 250 ML IV SCH (07:59)
[2020-01-03] MEDS: MIDODRINE 5 MG TABLET PO SCH ×3 (07:59→21:31)
[2020-01-03] MEDS: SODIUM CHLORIDE FLUSH 10ML SYR IVF SCH ×2 (07:59→21:32)
[2020-01-03] MEDS ORDERED: VANCOMYCIN 1,200 MG in SODIUM CHLORIDE 0.9% 250 ML IV SCH (10:00)
[2020-01-03 12:47] VITALS: BP 106/67
[2020-01-03 16:42] VITALS: BP 104/72
[2020-01-03 20:07] VITALS: BP 116/71
[2020-01-03] MEDS: OXYcodone IR 5MG TABLET PO PRN (21:49)
[2020-01-04] MEDS: CEFEPIME 2 GM in DEXTROSE 5% 100 ML IV SCH ×3 (02:45→20:25)
[2020-01-04] MEDS: OXYcodone IR 5MG TABLET PO PRN ×4 (02:45→22:38)
[2020-01-04 03:03] VITALS: BP 100/65
[2020-01-04 06:13] LABS: ALBUMIN 1.9 g/dL (3.4-5.0); CALCIUM 7.7 mg/dL (8.5-10.1); CHLORIDE 108 mmol/L (98-107)
[2020-01-04 06:18] LABS: ALANINE AMINOTRANSFERASE 28 U/L (12-78); ALKALINE PHOSPHATASE 105 U/L (45-117); ANION GAP 7 mmol/L (5-15); BILIRUBIN,TOTAL 2.9 mg/dL (0.2-1.0); CREATININE 1.14 mg/dL (0.7-1.3); TOTAL PROTEIN 5.4 g/dL (6.4-8.2); TRIGLYCERIDES 30 mg/dL (50-200)
[2020-01-04 07:42] VITALS: BP 106/67
[2020-01-04] MEDS: MIDODRINE 5 MG TABLET PO SCH ×3 (07:42→21:45)
[2020-01-04] MEDS: VANCOMYCIN 1,400 MG in SODIUM CHLORIDE 0.9% 250 ML IV SCH (07:42)
[2020-01-04] MEDS: SODIUM CHLORIDE FLUSH 10ML SYR IVF SCH ×2 (09:00→22:26)
[2020-01-04 10:18] LABS: BASOPHILS # (AUTO) 0.05 x10^3/uL (0-0.1); BASOPHILS % (AUTO) 1 % (0-1); EOSINOPHILS # (AUTO) 0.12 x10^3/uL (0-0.4); EOSINOPHILS % (AUTO) 2 % (1-7); LYMPHOCYTES # (AUTO) 1.18 x10^3/uL (1-3.4); LYMPHOCYTES % (AUTO) 25 % (22-44); MD NO; MEAN CORPUSCULAR HEMOGLOBIN 30.2 pg (27.5-34.5); MEAN CORPUSCULAR VOLUME 94.2 fL (81-97); MEAN PLATELET VOLUME 7.5 fL (7.4-10.4); MONOCYTES # (AUTO) 0.35 x10^3/uL (0.2-0.8); MONOCYTES % (AUTO) 7 % (2-9); NEUTROPHILS % (AUTO) 65 % (42-75); PLATELET COUNT 131 x10^3/uL (130-400); RED BLOOD COUNT 3.62 x10^6/uL (4.38-5.82); RED CELL DISTRIBUTION WIDTH 18.7 % (9.4-14.8)
[2020-01-04] MEDS: morphine SULFATE 10 MG/ML, 1ML IVPush PRN (13:24)
[2020-01-04 14:25] VITALS: BP 103/67
[2020-01-04] MEDS ORDERED: LIDOCAINE 1%, 10ML ONE (15:23)
[2020-01-04 17:16] VITALS: BP 98/65
[2020-01-04] MEDS: ALBUMIN HUMAN 25% 50 ML IV SCH (17:29)
[2020-01-04 21:44] VITALS: BP 99/61
[2020-01-05] MEDS: ALBUMIN HUMAN 25% 50 ML IV SCH ×2 (01:06→10:34)
[2020-01-05 03:46] VITALS: BP 96/56
[2020-01-05] MEDS: CEFEPIME 2 GM in DEXTROSE 5% 100 ML IV SCH ×2 (03:59→11:46)
[2020-01-05] MEDS: OXYcodone IR 5MG TABLET PO PRN ×4 (04:00→20:56)
[2020-01-05 05:41] LABS: ANION GAP 7 mmol/L (5-15); CALCIUM 7.8 mg/dL (8.5-10.1); CHLORIDE 107 mmol/L (98-107); CREATININE 1.05 mg/dL (0.7-1.3)
[2020-01-05 06:22] LABS: MEAN CORPUSCULAR HEMOGLOBIN 30.3 pg (27.5-34.5); MEAN CORPUSCULAR HGB CONC 32.9 g/dL (33.2-36.2); MEAN PLATELET VOLUME 8.2 fL (7.4-10.4); PLATELET COUNT 78 x10^3/uL (130-400); RED BLOOD COUNT 2.76 x10^6/uL (4.38-5.82); RED CELL DISTRIBUTION WIDTH 17.7 % (9.4-14.8)
[2020-01-05 06:24] LABS: BASOPHILS # (AUTO) 0.03 x10^3/uL (0-0.1); BASOPHILS % (AUTO) 1 % (0-1); EOSINOPHILS # (AUTO) 0.07 x10^3/uL (0-0.4); EOSINOPHILS % (AUTO) 2 % (1-7); LYMPHOCYTES # (AUTO) 0.78 x10^3/uL (1-3.4); LYMPHOCYTES % (AUTO) 24 % (22-44); MD SCAN; MONOCYTES # (AUTO) 0.22 x10^3/uL (0.2-0.8); MONOCYTES % (AUTO) 7 % (2-9); NEUTROPHILS % (AUTO) 67 % (42-75)
[2020-01-05 07:03] VITALS: BP 108/63
[2020-01-05] MEDS: VANCOMYCIN 1,400 MG in SODIUM CHLORIDE 0.9% 250 ML IV SCH (08:56)
[2020-01-05] MEDS: MIDODRINE 5 MG TABLET PO SCH ×3 (08:57→20:56)
[2020-01-05] MEDS: SODIUM CHLORIDE FLUSH 10ML SYR IVF SCH ×2 (08:58→21:00)
[2020-01-05 13:30] VITALS: BP 143/87
[2020-01-05] MEDS ORDERED: CEFEPIME 2 GM in DEXTROSE 5% 100 ML IV SCH (18:00)
[2020-01-05 20:25] VITALS: BP 100/59
[2020-01-06] MEDS: OXYcodone IR 5MG TABLET PO PRN ×5 (00:48→21:34)
[2020-01-06 02:24] VITALS: BP 91/51
[2020-01-06 08:45] VITALS: BP 117/69
[2020-01-06] MEDS: MIDODRINE 5 MG TABLET PO SCH ×3 (09:34→20:31)
[2020-01-06] MEDS: SODIUM CHLORIDE FLUSH 10ML SYR IVF SCH ×2 (09:34→20:31)
[2020-01-06 09:36] VITALS: BP 106/66
[2020-01-06] MEDS: VANCOMYCIN 1,100 MG in SODIUM CHLORIDE 0.9% 250 ML IV SCH (09:52)
[2020-01-06 12:50] VITALS: BP 107/69
[2020-01-06 16:16] VITALS: BP 103/62
[2020-01-06 20:02] VITALS: BP 125/67
[2020-01-06] MEDS: morphine SULFATE 10 MG/ML, 1ML IVPush PRN (20:31)
[2020-01-06] MEDS ORDERED: VANCOMYCIN 1,400 MG in SODIUM CHLORIDE 0.9% 250 ML IV SCH (21:00)
[2020-01-07 01:22] VITALS: BP 146/60
[2020-01-07] MEDS: OXYcodone IR 5MG TABLET PO PRN ×3 (02:16→17:31)
[2020-01-07 08:08] VITALS: BP 120/70
[2020-01-07] MEDS: VANCOMYCIN 1,100 MG in SODIUM CHLORIDE 0.9% 250 ML IV SCH (08:56)
[2020-01-07] MEDS: FUROSEMIDE 20 MG TABLET PO SCH ×2 (08:57→17:30)
[2020-01-07] MEDS: SPIRONOLACTONE 25 MG TABLET PO SCH ×2 (08:57→20:56)
[2020-01-07] MEDS: SODIUM CHLORIDE FLUSH 10ML SYR IVF SCH ×2 (08:57→20:56)
[2020-01-07] MEDS: MIDODRINE 5 MG TABLET PO SCH ×3 (08:58→20:56)
[2020-01-07 09:14] LABS: ALANINE AMINOTRANSFERASE 21 U/L (12-78); ALBUMIN 2.3 g/dL (3.4-5.0); ANION GAP 6 mmol/L (5-15); C-REACTIVE PROTEIN, QUANT 0.57 mg/dL (0.02-0.49); CALCIUM 7.7 mg/dL (8.5-10.1); CHLORIDE 107 mmol/L (98-107); CREATININE 1.12 mg/dL (0.7-1.3)
[2020-01-07 09:21] LABS: MEAN CORPUSCULAR HEMOGLOBIN 30.6 pg (27.5-34.5); MEAN CORPUSCULAR VOLUME 92.7 fL (81-97); RED CELL DISTRIBUTION WIDTH 18.4 % (9.4-14.8)
[2020-01-07 09:34] LABS: HCT (SEDRATE) 26.9 % (39.2-51.8)
[2020-01-07 09:53] LABS: ALKALINE PHOSPHATASE 112 U/L (45-117); BILIRUBIN,TOTAL 2.2 mg/dL (0.2-1.0); TOTAL PROTEIN 5.4 g/dL (6.4-8.2)
[2020-01-07 10:05] LABS: BASOPHILS # (AUTO) 0.05 x10^3/uL (0-0.1); BASOPHILS % (AUTO) 1 % (0-1); EOSINOPHILS % (AUTO) 2 % (1-7); LYMPHOCYTES # (AUTO) 1.08 x10^3/uL (1-3.4); LYMPHOCYTES % (AUTO) 24 % (22-44); MD SCAN; MEAN PLATELET VOLUME 8.1 fL (7.4-10.4); MONOCYTES # (AUTO) 0.51 x10^3/uL (0.2-0.8); MONOCYTES % (AUTO) 12 % (2-9); NEUTROPHILS # (AUTO) 2.68 x10^3/uL (1.8-6.8); NEUTROPHILS % (AUTO) 61 % (42-75); PLATELET COUNT 107 x10^3/uL (130-400); VANCOMYCIN,TROUGH 20.1 mcg/mL (5.0-10.0)
[2020-01-07 12:38] VITALS: BP 108/73
[2020-01-07 20:35] VITALS: BP 129/78
[2020-01-08 02:00] VITALS: BP 115/67
[2020-01-08 05:42] LABS: BASOPHILS # (AUTO) 0.04 x10^3/uL (0-0.1); BASOPHILS % (AUTO) 1 % (0-1); EOSINOPHILS # (AUTO) 0.13 x10^3/uL (0-0.4); EOSINOPHILS % (AUTO) 3 % (1-7); LYMPHOCYTES # (AUTO) 1.07 x10^3/uL (1-3.4); LYMPHOCYTES % (AUTO) 23 % (22-44); MD NO; MEAN CORPUSCULAR HEMOGLOBIN 30.3 pg (27.5-34.5); MEAN CORPUSCULAR HGB CONC 32.9 g/dL (33.2-36.2); MEAN PLATELET VOLUME 8.2 fL (7.4-10.4); MONOCYTES # (AUTO) 0.44 x10^3/uL (0.2-0.8); MONOCYTES % (AUTO) 9 % (2-9); NEUTROPHILS # (AUTO) 3.05 x10^3/uL (1.8-6.8); NEUTROPHILS % (AUTO) 65 % (42-75); PLATELET COUNT 117 x10^3/uL (130-400); RED BLOOD COUNT 2.88 x10^6/uL (4.38-5.82); RED CELL DISTRIBUTION WIDTH 18.5 % (9.4-14.8)
[2020-01-08 05:49] LABS: ANION GAP 8 mmol/L (5-15); CHLORIDE 107 mmol/L (98-107)
[2020-01-08 05:52] LABS: CREATININE 1.29 mg/dL (0.7-1.3)
[2020-01-08 06:53] VITALS: BP 94/54
[2020-01-08] MEDS ORDERED: LIDOCAINE 1%, 10ML ONE (08:11)
[2020-01-08] MEDS: MIDODRINE 5 MG TABLET PO SCH ×3 (09:00→20:24)
[2020-01-08] MEDS: VANCOMYCIN 1,100 MG in SODIUM CHLORIDE 0.9% 250 ML IV SCH (09:45)
[2020-01-08] MEDS ORDERED: PROPOFOL 10 MG/ML, 20ML ONE (10:35)
[2020-01-08] MEDS ORDERED: PHENYLEPHRINE 10 MG/ML ONE (10:35)
[2020-01-08] MEDS ORDERED: SUCCINYLCHOLINE 20 MG/ML, 10ML ONE (10:35)
[2020-01-08] MEDS ORDERED: HALOPERIDOL 5 MG/ML IV PRN (11:30)
[2020-01-08] MEDS ORDERED: HYDROmorphone 2 MG/ML, 1ML IVPush PRN (11:30)
[2020-01-08] MEDS ORDERED: hydrALAzine 20 MG/ML, 1ML IV PRN (11:30)
[2020-01-08] MEDS ORDERED: LABETALOL 5MG/ML, 20ML IV PRN (11:30)
[2020-01-08] MEDS ORDERED: PROMETHAZINE 25 MG/ML, 1ML IV PRN (11:30)
[2020-01-08] MEDS ORDERED: FENTANYL PF 100 MCG/2ML ONE ×2 (11:32→12:37)
[2020-01-08] MEDS ORDERED: OXYcodone 5 MG/5 ML ORAL.SOL UDC ONE (12:37)
[2020-01-08] MEDS: OXYcodone 5 MG/5 ML ORAL.SOL UDC PO PRN (12:40)
[2020-01-08] MEDS: FENTANYL PF 100 MCG/2ML IV PRN ×2 (12:42→13:00)
[2020-01-08] MEDS: FUROSEMIDE 20 MG TABLET PO SCH ×2 (14:04→18:10)
[2020-01-08] MEDS: SPIRONOLACTONE 25 MG TABLET PO SCH ×2 (14:04→20:24)
[2020-01-08] MEDS: SODIUM CHLORIDE FLUSH 10ML SYR IVF SCH ×2 (14:04→20:24)
[2020-01-08 14:07] VITALS: BP 94/54
[2020-01-08] MEDS: OXYcodone IR 5MG TABLET PO PRN (18:11)
[2020-01-08] MEDS: ONDANSETRON ODT 4 MG PO PRN (20:24)
[2020-01-08 21:08] VITALS: BP 101/62
[2020-01-09] MEDS: OXYcodone IR 5MG TABLET PO PRN ×5 (00:11→23:08)
[2020-01-09 03:46] VITALS: BP 105/52
[2020-01-09 04:21] LABS: BASOPHILS # (AUTO) 0.03 x10^3/uL (0-0.1); BASOPHILS % (AUTO) 1 % (0-1); EOSINOPHILS # (AUTO) 0.08 x10^3/uL (0-0.4); EOSINOPHILS % (AUTO) 2 % (1-7); LYMPHOCYTES # (AUTO) 1.15 x10^3/uL (1-3.4); LYMPHOCYTES % (AUTO) 23 % (22-44); MD NO; MEAN CORPUSCULAR HEMOGLOBIN 31.6 pg (27.5-34.5); MEAN CORPUSCULAR HGB CONC 33.7 g/dL (33.2-36.2); MEAN CORPUSCULAR VOLUME 93.6 fL (81-97); MEAN PLATELET VOLUME 8.1 fL (7.4-10.4); MONOCYTES # (AUTO) 0.47 x10^3/uL (0.2-0.8); MONOCYTES % (AUTO) 10 % (2-9); NEUTROPHILS # (AUTO) 3.24 x10^3/uL (1.8-6.8); NEUTROPHILS % (AUTO) 65 % (42-75); PLATELET COUNT 116 x10^3/uL (130-400); RED BLOOD COUNT 2.81 x10^6/uL (4.38-5.82); RED CELL DISTRIBUTION WIDTH 18.7 % (9.4-14.8)
[2020-01-09 04:31] LABS: ANION GAP 5 mmol/L (5-15); CALCIUM 7.8 mg/dL (8.5-10.1); CHLORIDE 106 mmol/L (98-107); CREATININE 1.41 mg/dL (0.7-1.3)
[2020-01-09] MEDS: MIDODRINE 5 MG TABLET PO SCH ×3 (08:29→20:18)
[2020-01-09] MEDS: SODIUM CHLORIDE FLUSH 10ML SYR IVF SCH ×2 (08:29→21:00)
[2020-01-09] MEDS: SPIRONOLACTONE 25 MG TABLET PO SCH ×2 (08:29→20:18)
[2020-01-09] MEDS: VANCOMYCIN 1,100 MG in SODIUM CHLORIDE 0.9% 250 ML IV SCH (08:29)
[2020-01-09 08:50] VITALS: BP 108/69
[2020-01-09 14:15] VITALS: BP 104/75
[2020-01-09 19:35] VITALS: BP 111/63
[2020-01-09] MEDS ORDERED: MORPHINE SULFATE 4 MG/ML, 1ML IVPush PRN (23:30)
[2020-01-09] MEDS ORDERED: MELATONIN 5 MG TABLET PO PRN (23:30)
[2020-01-10 02:32] VITALS: BP 109/65
[2020-01-10] MEDS: OXYcodone IR 5MG TABLET PO PRN ×4 (05:06→21:10)
[2020-01-10] MEDS ORDERED: SODIUM CHLORIDE 0.9%, 500ML IVBOLUS ONE (05:30)
[2020-01-10 05:40] LABS: ALBUMIN 2.2 g/dL (3.4-5.0); ANION GAP 6 mmol/L (5-15); CALCIUM 7.9 mg/dL (8.5-10.1); CHLORIDE 106 mmol/L (98-107)
[2020-01-10 05:44] LABS: ALANINE AMINOTRANSFERASE 25 U/L (12-78); ALKALINE PHOSPHATASE 121 U/L (45-117); BASOPHILS # (AUTO) 0.05 x10^3/uL (0-0.1); BASOPHILS % (AUTO) 1 % (0-1); BILIRUBIN,TOTAL 1.6 mg/dL (0.2-1.0); CREATININE 2.29 mg/dL (0.7-1.3); EOSINOPHILS # (AUTO) 0.11 x10^3/uL (0-0.4); EOSINOPHILS % (AUTO) 3 % (1-7); LYMPHOCYTES # (AUTO) 0.89 x10^3/uL (1-3.4); LYMPHOCYTES % (AUTO) 22 % (22-44); MD NO; MEAN CORPUSCULAR HEMOGLOBIN 30.4 pg (27.5-34.5); MEAN CORPUSCULAR VOLUME 92.2 fL (81-97); MEAN PLATELET VOLUME 8.1 fL (7.4-10.4); MONOCYTES # (AUTO) 0.48 x10^3/uL (0.2-0.8); MONOCYTES % (AUTO) 12 % (2-9); NEUTROPHILS # (AUTO) 2.56 x10^3/uL (1.8-6.8); NEUTROPHILS % (AUTO) 63 % (42-75); PLATELET COUNT 101 x10^3/uL (130-400); RED BLOOD COUNT 2.67 x10^6/uL (4.38-5.82); TOTAL PROTEIN 5.3 g/dL (6.4-8.2); TRIGLYCERIDES 18 mg/dL (50-200)
[2020-01-10 08:00] VITALS: BP 107/71
[2020-01-10] MEDS: MIDODRINE 5 MG TABLET PO SCH ×3 (08:38→21:09)
[2020-01-10] MEDS: SODIUM CHLORIDE FLUSH 10ML SYR IVF SCH ×2 (08:39→21:00)
[2020-01-10] MEDS: ALBUMIN HUMAN 25% 100 ML IV SCH ×3 (08:39→21:09)
[2020-01-10] MEDS ORDERED: DAPTOMYCIN IV SCH (09:30)
[2020-01-10] MEDS ORDERED: SODIUM CHLORIDE 0.9% IV SCH (09:30)
[2020-01-10] MEDS ORDERED: SODIUM CHLORIDE 0.9% IVPB SCH (12:00)
[2020-01-10] MEDS ORDERED: SODIUM CHLORIDE 0.9% IV ONE (12:00)
[2020-01-10] MEDS ORDERED: DAPTOMYCIN IVPB SCH (12:00)
[2020-01-10] MEDS ORDERED: DAPTOMYCIN IV ONE (12:00)
[2020-01-10 12:21] VITALS: BP 112/71
[2020-01-10] MEDS: SODIUM CHLORIDE 0.9% 1,000 ML IV SCH (12:37)
[2020-01-10 14:03] LABS: CHLORIDE,URINE RANDOM < 10 mmol/L; POTASSIUM,URINE RANDOM 27 mmol/L; SODIUM,URINE RANDOM 11 mmol/L
[2020-01-10 18:53] VITALS: BP 99/60
[2020-01-11 00:36] VITALS: BP 118/66
[2020-01-11] MEDS: OXYcodone 5 MG/5 ML ORAL.SOL UDC PO PRN (01:19)
[2020-01-11] MEDS: SODIUM CHLORIDE 0.9% 1,000 ML IV SCH (01:50)
[2020-01-11] MEDS: ALBUMIN HUMAN 25% 100 ML IV SCH ×2 (01:50→08:25)
[2020-01-11 02:16] LABS: ANION GAP 8 mmol/L (5-15); CHLORIDE 107 mmol/L (98-107); CREATININE 3.03 mg/dL (0.7-1.3)
[2020-01-11 02:28] LABS: MEAN CORPUSCULAR HEMOGLOBIN 30.9 pg (27.5-34.5); MEAN CORPUSCULAR HGB CONC 33.4 g/dL (33.2-36.2); MEAN CORPUSCULAR VOLUME 92.5 fL (81-97); RED BLOOD COUNT 2.26 x10^6/uL (4.38-5.82); RED CELL DISTRIBUTION WIDTH 18.8 % (9.4-14.8)
[2020-01-11 02:53] LABS: ALANINE AMINOTRANSFERASE 21 U/L (12-78); ALBUMIN 2.8 g/dL (3.4-5.0); ANION GAP 7 mmol/L (5-15); CALCIUM 7.8 mg/dL (8.5-10.1); CHLORIDE 106 mmol/L (98-107); CREATININE 3.01 mg/dL (0.7-1.3)
[2020-01-11 02:56] LABS: ALKALINE PHOSPHATASE 107 U/L (45-117); BILIRUBIN,TOTAL 1.4 mg/dL (0.2-1.0); TOTAL PROTEIN 5.3 g/dL (6.4-8.2)
[2020-01-11 02:58] LABS: MD YES; MEAN PLATELET VOLUME 8.2 fL (7.4-10.4); PLATELET COUNT 82 x10^3/uL (130-400)
[2020-01-11 03:04] LABS: ANISOCYTOSIS 1+; BASOS#(MANUAL) 0.03 x10^3/uL (0-0.1); BASOS% (MANUAL) 1 % (0-1); ECHINOCYTES 1+; EOS#(MANUAL) 0.05 x10^3/uL (0.0-0.4); EOS% (MANUAL) 2 % (1-7); LYMPH#(MANUAL) 0.62 x10^3/uL (1-3.4); LYMPHS% (MANUAL) 23 % (22-44); METAMYELOCYTES# (MANUAL) 0.03 x10^3/uL (0-0); METAMYELOCYTES% (MANUAL) 1 % (0-1); MONOS#(MANUAL) 0.22 x10^3/uL (0.3-2.7); MONOS% (MANUAL) 8 % (2-9); OVALOCYTES 1+; SEG#(MANUAL) 1.76 x10^3/uL (1.8-6.8); SEGS% (MANUAL) 65 % (42-75)
[2020-01-11 03:05] LABS: <PLATELET ESTIMATE> DECREASED; <PLT MORPHOLOGY> NORMAL PLT MORPH
[2020-01-11] MEDS: OXYcodone IR 5MG TABLET PO PRN ×2 (06:07→12:25)
[2020-01-11] MEDS: ONDANSETRON ODT 4 MG PO PRN (06:07)
[2020-01-11 07:10] VITALS: BP 92/43
[2020-01-11] MEDS: MIDODRINE 5 MG TABLET PO SCH (08:25)
[2020-01-11] MEDS: SODIUM CHLORIDE FLUSH 10ML SYR IVF SCH (08:26)
[2020-01-11] MEDS ORDERED: SODIUM CHLORIDE 0.9% 1,000 ML IV SCH (08:30)
[2020-01-11] MEDS ORDERED: DOXYCYCLINE 100MG TABLET PO SCH (10:30)
[2020-01-11] MEDS ORDERED: CIPROFLOXACIN 500 MG TABLET PO SCH (11:30)
[2020-01-11] MEDS ORDERED: MIDO5TAB9 PO (11:45)
[2020-01-11] MEDS ORDERED: DOXY100T PO (11:45)
[2020-01-11] MEDS ORDERED: CIPR500T87 PO (11:45)
[2020-01-11] MEDS ORDERED: MELA5TAB14 PO (11:45)
[2020-01-12] MEDS ORDERED: DAPTOMYCIN 400 MG in SODIUM CHLORIDE 0.9% 100 ML IV SCH (11:00)
== END 2020-01-11 13:00 | disposition hospice, home (50) | DRG 856 ==
LOC: ED 14:15 → EDIP 14:16 → ED 14:16 → 3N 15:21 → CCU 01-01 11:50 → 4NE 01-02 19:52
PROVIDERS: ADMIT Hospitalist; ATTEND Internal Medicine
PROC: 0W993ZZ Drainage of Right Pleural Cavity, Percutaneous Approach (ICD-10-PCS; 2020-01-01)
PROC: 0W9G3ZZ Drainage of Peritoneal Cavity, Percutaneous Approach (ICD-10-PCS; 2020-01-01)
PROC: 0KB60ZZ Excision of Left Shoulder Muscle, Open Approach (ICD-10-PCS; principal; 2020-01-01 12:00)
PROC: 0T9B70Z Drainage of Bladder with Drainage Device, Via Natural or Artificial Opening (ICD-10-PCS; 2020-01-02)
PROC: 0W9G3ZZ Drainage of Peritoneal Cavity, Percutaneous Approach (ICD-10-PCS; 2020-01-04)
PROC: 02HV33Z Insertion of Infusion Device into Superior Vena Cava, Percutaneous Approach (ICD-10-PCS; 2020-01-06)
PROC: B5181ZA Fluoroscopy of Superior Vena Cava using Low Osmolar Contrast, Guidance (ICD-10-PCS; 2020-01-06)
PROC: B548ZZA Ultrasonography of Superior Vena Cava, Guidance (ICD-10-PCS; 2020-01-06)
PROC: 0W9G3ZZ Drainage of Peritoneal Cavity, Percutaneous Approach (ICD-10-PCS; 2020-01-08)
DX: T81.42XA Infection following a procedure, deep incisional surgical site, initial encounter (principal); N17.0 Acute kidney failure with tubular necrosis; K76.7 Hepatorenal syndrome; J96.01 Acute respiratory failure with hypoxia; T81.31XA Disruption of external operation (surgical) wound, not elsewhere classified, initial encounter; L02.414 Cutaneous abscess of left upper limb; L03.114 Cellulitis of left upper limb; Z99.11 Dependence on respirator [ventilator] status; E87.1 Hypo-osmolality and hyponatremia; E87.2 Acidosis; J90 Pleural effusion, not elsewhere classified; J98.11 Atelectasis; M86.8X2 Other osteomyelitis, upper arm; D63.8 Anemia in other chronic diseases classified elsewhere; D69.6 Thrombocytopenia, unspecified; Z66 Do not resuscitate; Z51.5 Encounter for palliative care; Z86.14 Personal history of Methicillin resistant Staphylococcus aureus infection; Z91.14 Patient's other noncompliance with medication regimen; Z91.19 Patient's noncompliance with other medical treatment and regimen; F17.210 Nicotine dependence, cigarettes, uncomplicated; B18.2 Chronic viral hepatitis C; D72.819 Decreased white blood cell count, unspecified; E86.1 Hypovolemia; E87.70 Fluid overload, unspecified; F10.20 Alcohol dependence, uncomplicated; Y90.9 Presence of alcohol in blood, level not specified; K70.31 Alcoholic cirrhosis of liver with ascites; K72.90 Hepatic failure, unspecified without coma; I95.9 Hypotension, unspecified; Y83.8 Other surgical procedures as the cause of abnormal reaction of the patient, or of later complication, without mention of misadventure at the time of the procedure; Y92.89 Other specified places as the place of occurrence of the external cause
CPT/HCPCS: 32555; 36415; 36600; 73030; 74018; 82042; 82150; 82945; 83986; 84145; 89051; J3490; 36573; 49083; 71045; 76770; 80048; 80053; 80202; 80307; 81001; 82140; 82436; 82570; 82803; 83605; 83615; 83735; 84100; 84133; 84157; 84300; 84478; 85025; 85610; 85651; 86140; 87015; 87040; 87070; 87075; 87077; 87081; 87102; 87116; 87186; 87205; 87206; 88112; 88305; 93005; 94002; 94640; C1729; G0378; J0295; J0690; J0878; J1100; J2250; J2405; J2704; J3010; J3370; P9047; Q0162; C1751; J0330; J2270; J2370; J7030; J7040; J7050

== ENCOUNTER 2020-01-21 13:06 | Emergency (ER) | payer MEDICAID ==
[~2020-01-21] VITALS: Ht 170.2 cm; Wt 64.0 kg
[~2020-01-21 13:06] MED LIST changes: +CIPR500T87 PO; +DOXY100T PO; +MELA5TAB14 PO; +MIDO5TAB9 PO
--- NOTE | 2020-01-21 13:35 | NUR ---
THIS IS A 64 YO MALE BIB [facility] FOR FAILURE TO THRIVE AT HOME AFTER BEING DISCHARGED MONDAY FROM [facility] ON HOSPICE. HOSPICE WAS DISCONTINUED TODAY, PATIENT LIVES IWTH HIS MOTHER THAT IS 91 YO AND SHE DOES NOT BELIEVE SHE CAN CARE FOR PATIENT. PATIENT PRESENTS TO [facility]-ED A&OX4, VSS, PATIENT HAS INDWELLING URINARY CATHETER THAT WAS PLACED AT LAST HOSPITAL VISIT. PATIENT HAS LEFT SHOULDER SURGICAL INCISION THAT HAS BEEN SUTURED, PATIENT WAS HAVING WOUND CARE NURSE CHANGE DRESSINGS AT HOME. WHEN MOVING PATIENT, PRESSURE WOUND NOTICIED ON RIGHT SACRUM. 2+ EDEMA NOTED BILATERALLY IN LOWER EXTREMITIES. 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 REASON FOR COMING TO ER IS FOR PLACEMENT IN TO LONGTERM CARE FACILITY. VSS, NAD, STATES 8/10 SHOULDER PAIN. CALL LIGHT IN REACH
--- NOTE | 2020-01-21 13:39 | NUR ---
ANNY IRIZARRYCathy (MOTHER): [phone]
[2020-01-21 13:46] LABS: ALANINE AMINOTRANSFERASE 21 U/L (12-78); ALBUMIN 2.9 g/dL (3.4-5.0); ANION GAP 11 mmol/L (5-15); CALCIUM 8.7 mg/dL (8.5-10.1); CHLORIDE 101 mmol/L (98-107)
--- NOTE | 2020-01-21 13:49 | NUR ---
SHOULDER WOUND DRESSED
[2020-01-21 13:50] LABS: BILIRUBIN,TOTAL 2.6 mg/dL (0.2-1.0); CREATININE 3.23 mg/dL (0.7-1.3)
[2020-01-21 13:51] LABS: ALKALINE PHOSPHATASE 103 U/L (45-117); TOTAL PROTEIN 6.5 g/dL (6.4-8.2)
[2020-01-21 14:23] LABS: MEAN CORPUSCULAR HEMOGLOBIN 30.3 pg (27.5-34.5); MEAN CORPUSCULAR HGB CONC 32.7 g/dL (33.2-36.2); MEAN CORPUSCULAR VOLUME 92.5 fL (81-97); MEAN PLATELET VOLUME 8.4 fL (7.4-10.4); PLATELET COUNT 113 x10^3/uL (130-400); RED BLOOD COUNT 2.79 x10^6/uL (4.38-5.82); RED CELL DISTRIBUTION WIDTH 18.7 % (9.4-14.8)
[2020-01-21 14:46] LABS: <PLATELET ESTIMATE> DECREASED; <PLT MORPHOLOGY> NORMAL PLT MORPH; ANISOCYTOSIS 1+; BASOPHILS # (AUTO) 0.02 x10^3/uL (0-0.1); BASOPHILS % (AUTO) 0 % (0-1); ECHINOCYTES 1+; EOSINOPHILS # (AUTO) 0.03 x10^3/uL (0-0.4); EOSINOPHILS % (AUTO) 1 % (1-7); LYMPHOCYTES # (AUTO) 0.67 x10^3/uL (1-3.4); LYMPHOCYTES % (AUTO) 13 % (22-44); MD MORPH REVIEW ONLY; MONOCYTES # (AUTO) 0.39 x10^3/uL (0.2-0.8); MONOCYTES % (AUTO) 7 % (2-9); NEUTROPHILS # (AUTO) 4.21 x10^3/uL (1.8-6.8); NEUTROPHILS % (AUTO) 79 % (42-75); OVALOCYTES 1+
--- NOTE | 2020-01-21 15:30 | NUR ---
CLAY TRANSPORTER LAKEISHA TO HAVE CONVERSATION WITH PATIENT IN ROOM ON PHONE
[2020-01-21 16:11] VITALS: BP 120/70
[2020-01-21] MEDS ORDERED: POTASSIUM CHLORIDE 20 MEQ TAB.ER.PRT ONE (16:28)
[2020-01-21] MEDS ORDERED: POTASSIUM CHLORIDE 20 MEQ TAB.ER.PRT PO ONE (16:30)
--- NOTE | 2020-01-21 16:51 | NUR ---
YEBOAH BAG CHANGED DUE TO LEAK IN BAG, YEBOAH SITE IN CLEAN AND DRY. PATIENT CHANGED AND AWAITING [facility]
== END 2020-01-21 17:14 | disposition home or self-care (01) ==
LOC: ED 13:20
DX: N28.9 Disorder of kidney and ureter, unspecified (principal); R53.1 Weakness; E87.6 Hypokalemia; N18.6 End stage renal disease; Z86.19 Personal history of other infectious and parasitic diseases
CPT/HCPCS: 36415; 71045; 80053; 83690; 83735; 83880; 85025; 93005; 99285

== ENCOUNTER 2020-01-29 11:08 | Inpatient (IN) | payer MEDICAID ==
[~2020-01-29] VITALS: Ht 177.8 cm; Wt 58.1 kg
[2020-01-29] MEDS ORDERED: SODIUM CHLORIDE 0.9% 1,000 ML IV ONE (11:22)
[2020-01-29] MEDS ORDERED: SODIUM CHLORIDE FLUSH 10ML SYR IVF ONE (11:30)
--- NOTE | 2020-01-29 11:49 | NUR ---
PT KLEVER KUMAR, GLF THIS AM, HAS HAD MULTIPLE FALLS LATELY. PT ON HOSPICE LIVING WITH MOTHER, PT NEEDING PLACEDMENT, HOSPICE LIFTED AT THIS TIME. PT LIVES WITH 90 YR OLD MOTHER PER EMS REPORT. SHE IS NO LONGER ABLE TO CARE FOR HIM, PT CONTINUES TO ABUSE HEROIN AND ETOH. UNABLE TO DETERMINE LAST USE, PT ARROUSABLE TO VERBAL STIMULI, ALTHOUGH DROWSY. PER REPORT, FSBG 128. UNABLE TO DETERMINE +LOC PT BP ON ARRIVAL 77/31. NO ACCESS ON ARRIVAL. MULTIPLE ATTEMPTS WITH 2 RNS, ACCESSED ACHEIVED. BOLUS HUNG PER MD ORDER
--- NOTE | 2020-01-29 12:42 | NUR ---
Pt bp still reading low, informed.
[2020-01-29 12:53] LABS: ALANINE AMINOTRANSFERASE 23 U/L (12-78); ALBUMIN 2.7 g/dL (3.4-5.0); ANION GAP 7 mmol/L (5-15); CHLORIDE 105 mmol/L (98-107)
[2020-01-29 12:58] LABS: ALKALINE PHOSPHATASE 116 U/L (45-117); BILIRUBIN,TOTAL 1.6 mg/dL (0.2-1.0); CREATINE KINASE, TOTAL 46 U/L (39-308); TOTAL PROTEIN 6.2 g/dL (6.4-8.2)
[2020-01-29 13:07] LABS: MEAN CORPUSCULAR HEMOGLOBIN 30.6 pg (27.5-34.5); MEAN CORPUSCULAR HGB CONC 32.7 g/dL (33.2-36.2); MEAN CORPUSCULAR VOLUME 93.4 fL (81-97); PLATELET COUNT 91 x10^3/uL (130-400); RED BLOOD COUNT 2.32 x10^6/uL (4.38-5.82); RED CELL DISTRIBUTION WIDTH 19.6 % (9.4-14.8)
[2020-01-29 13:08] LABS: MD YES
[2020-01-29 13:11] LABS: EOS% (MANUAL) 5 % (1-7); LYMPHS% (MANUAL) 25 % (22-44); MONOS#(MANUAL) 0.36 x10^3/uL (0.3-2.7); MONOS% (MANUAL) 18 % (2-9); MYELOCYTES# (MANUAL) 0.02 x10^3/uL (0-0); MYELOCYTES% (MANUAL) 1 % (0-0); SEG#(MANUAL) 1.02 x10^3/uL (1.8-6.8); SEGS% (MANUAL) 51 % (42-75)
[2020-01-29 13:12] LABS: ANISOCYTOSIS 1+; OVALOCYTES 1+
[2020-01-29 13:13] LABS: <PLATELET ESTIMATE> DECREASED; <PLT MORPHOLOGY> NORMAL PLT MORPH; SCHISTOCYTES 1+
[2020-01-29 13:16] LABS: ECHINOCYTES 1+
[2020-01-29] MEDS ORDERED: SODIUM CHLORIDE FLUSH 10ML SYR IVF PRN (13:30)
--- NOTE | 2020-01-29 14:32 | NUR ---
REPORT TO RECIEVING RN
[2020-01-29 15:22] VITALS: BP 100/65
[2020-01-29] MEDS ORDERED: PHARMACY MAY ADJ FOR RENAL FX MC PRN (17:30)
[2020-01-29] MEDS ORDERED: SODIUM CHLORIDE 0.9% 1,000 ML IV SCH (18:00)
[2020-01-29 18:25] VITALS: BP 106/59
[2020-01-29 20:15] VITALS: BP 98/62
[2020-01-29] MEDS: DOXYCYCLINE 100MG TABLET PO SCH (20:57)
[2020-01-29] MEDS: CIPROFLOXACIN 500 MG TABLET PO SCH (20:58)
[2020-01-29 21:30] VITALS: BP 94/60
[2020-01-29 21:44] LABS: MICROSCOPIC NOT IND
[2020-01-29 21:49] LABS: CULTURE INDICATED? NO
[2020-01-29 22:30] VITALS: BP 96/55
[2020-01-30 00:31] VITALS: BP 102/60
[2020-01-30 06:49] VITALS: BP 106/46
[2020-01-30] MEDS: DOXYCYCLINE 100MG TABLET PO SCH ×2 (08:11→21:12)
[2020-01-30] MEDS: MULTIVITAMIN 1 TABLET PO SCH (08:11)
[2020-01-30] MEDS: THIAMINE 100MG TABLET PO SCH (08:12)
[2020-01-30] MEDS: CIPROFLOXACIN 500 MG TABLET PO SCH ×2 (08:12→21:13)
[2020-01-30] MEDS: FOLIC ACID 1 MG TABLET PO SCH (08:12)
[2020-01-30 14:23] VITALS: BP 120/71
[2020-01-30 20:06] VITALS: BP 101/64
[2020-01-31 02:54] VITALS: BP 105/62
[2020-01-31 06:41] VITALS: BP 121/68
[2020-01-31] MEDS: THIAMINE 100MG TABLET PO SCH ×2 (08:17→10:30)
[2020-01-31] MEDS: CIPROFLOXACIN 500 MG TABLET PO SCH ×2 (08:17→10:30)
[2020-01-31] MEDS: MULTIVITAMIN 1 TABLET PO SCH ×2 (08:17→10:30)
[2020-01-31] MEDS: DOXYCYCLINE 100MG TABLET PO SCH ×2 (08:17→10:30)
[2020-01-31] MEDS: FOLIC ACID 1 MG TABLET PO SCH ×2 (08:17→10:30)
== END 2020-01-31 13:04 | disposition hospice, home (50) | DRG 441 ==
LOC: ED 13:10 → EDIP 13:11 → ED 13:32 → SUATTDRO 13:39 → 3N 14:41
PROVIDERS: ADMIT Internal Medicine; ATTEND Internal Medicine
DX: K72.00 Acute and subacute hepatic failure without coma (principal); G92 Toxic encephalopathy; E43 Unspecified severe protein-calorie malnutrition; N18.6 End stage renal disease; D61.818 Other pancytopenia; E87.2 Acidosis; F11.20 Opioid dependence, uncomplicated; I12.0 Hypertensive chronic kidney disease with stage 5 chronic kidney disease or end stage renal disease; K76.6 Portal hypertension; M86.612 Other chronic osteomyelitis, left shoulder; Z68.1 Body mass index [BMI] 19.9 or less, adult; B18.2 Chronic viral hepatitis C; D63.8 Anemia in other chronic diseases classified elsewhere; E87.5 Hyperkalemia; E87.6 Hypokalemia; F10.20 Alcohol dependence, uncomplicated; K74.60 Unspecified cirrhosis of liver; R62.7 Adult failure to thrive; Z51.5 Encounter for palliative care; Z66 Do not resuscitate; Z78.1 Physical restraint status; Z79.2 Long term (current) use of antibiotics; Z87.891 Personal history of nicotine dependence
CPT/HCPCS: 36415; 71045; 80053; 80307; 81003; 82140; 82550; 83605; 83690; 83880; 85025; 87040; 93005; 96367; 96375; 99285; G0378; J7030

== ENCOUNTER 2020-01-31 10:37 | Inpatient (IN) | payer OTHER ==
[~2020-01-31] VITALS: Ht 172.7 cm; Wt 58.1 kg
[2020-01-31 15:20] VITALS: BP 101/54
[2020-01-31] MEDS ORDERED: SODIUM CHLORIDE 0.9% 1,000 ML IV SCH (15:53)
[2020-01-31] MEDS ORDERED: MORPHINE SULFATE 4 MG/ML, 1ML IVPush PRN ×2 (16:00)
[2020-01-31] MEDS ORDERED: ONDANSETRON 2MG/ML, 2ML IVPush PRN (16:00)
[2020-01-31] MEDS: HALOPERIDOL 5 MG/ML IV SCH (17:04)
[2020-01-31] MEDS: SCOPOLAMINE 1MG PATCH TD SCH (17:04)
[2020-01-31] MEDS: LORazepam 2 MG/ML, 1ML IVPush PRN ×2 (19:53→19:56)
[2020-02-01] MEDS: HALOPERIDOL 5 MG/ML IV SCH ×4 (00:16→17:53)
[2020-02-01] MEDS: morphine SULFATE 100 MG in DEXTROSE 5% 90 ML IV PRN (21:37)
[2020-02-02] MEDS: HALOPERIDOL 5 MG/ML IV SCH ×5 (01:09→21:00)
[2020-02-02] MEDS: LORazepam 2 MG/ML, 1ML IVPush PRN ×5 (04:01→15:14)
[2020-02-02] MEDS: morphine SULFATE 100 MG in DEXTROSE 5% 90 ML IV PRN (13:40)
[2020-02-03] MEDS: LORazepam 2 MG/ML, 1ML IVPush PRN ×2 (00:14→13:01)
[2020-02-03] MEDS: morphine SULFATE 100 MG in DEXTROSE 5% 90 ML IV PRN (03:13)
[2020-02-03] MEDS: HALOPERIDOL 5 MG/ML IV SCH ×4 (03:21→21:00)
[2020-02-03] MEDS ORDERED: HYDROmorphone 1 MG/ML, 1ML INJ IVPush PRN (13:30)
[2020-02-03] MEDS: SCOPOLAMINE 1MG PATCH TD SCH (15:24)
[2020-02-03] MEDS: SODIUM CHLORIDE 0.9% IVPB PRN (15:36)
[2020-02-03] MEDS: HYDROMORPHONE IVPB PRN (15:36)
[2020-02-04] MEDS: HYDROMORPHONE IVPB PRN ×2 (01:28→19:57)
[2020-02-04] MEDS: SODIUM CHLORIDE 0.9% IVPB PRN ×2 (01:28→19:57)
[2020-02-04] MEDS: HALOPERIDOL 5 MG/ML IV SCH ×5 (03:51→23:18)
[2020-02-04] MEDS: LORazepam 2 MG/ML, 1ML IVPush PRN (08:26)
[2020-02-05] MEDS: SODIUM CHLORIDE 0.9% IVPB PRN ×3 (03:00→18:43)
[2020-02-05] MEDS: HYDROMORPHONE IVPB PRN ×3 (03:00→18:43)
[2020-02-05] MEDS: HALOPERIDOL 5 MG/ML IV SCH ×5 (03:27→23:08)
[2020-02-06] MEDS: SODIUM CHLORIDE 0.9% IVPB PRN ×5 (00:13→20:33)
[2020-02-06] MEDS: HYDROMORPHONE IVPB PRN ×5 (00:13→20:33)
[2020-02-06] MEDS ORDERED: FENTANYL 12 MCG PATCH TD SCH (00:30)
[2020-02-06] MEDS ORDERED: LORazepam 2 MG/ML, 1ML IVPush PRN (00:30)
[2020-02-06] MEDS ORDERED: HYDROmorphone 2 MG/ML, 1ML ONE (00:42)
[2020-02-06] MEDS ORDERED: FENTANYL 12 MCG PATCH ONE (00:44)
[2020-02-06] MEDS: HALOPERIDOL 5 MG/ML IV SCH ×7 (01:19→13:18)
[2020-02-06] MEDS ORDERED: HYDROmorphone 1 MG/ML, 1ML INJ IVPush PRN (01:30)
[2020-02-06] MEDS: HYDROmorphone 2 MG/ML, 1ML IVPush PRN (03:06)
[2020-02-06] MEDS ORDERED: ZIPRASIDONE 20 MG INJ IM ONE (05:00)
[2020-02-06] MEDS ORDERED: PHENOBARBITAL ETOH DETOX PER PHARMACY MC PRN (13:30)
[2020-02-06] MEDS ORDERED: PHENOBARBITAL SODIUM 65 MG/ML, 1ML IV SCH (14:30)
[2020-02-06] MEDS: LORazepam 2 MG/ML, 1ML IVPush SCH ×2 (14:45→20:32)
[2020-02-06] MEDS: SCOPOLAMINE 1MG PATCH TD SCH (17:55)
[2020-02-06] MEDS: PHENOBARBITAL SODIUM 65 MG/ML, 1ML IV SCH (17:55)
[2020-02-06] MEDS ORDERED: FENTANYL 50 MCG PATCH ONE (18:24)
[2020-02-06] MEDS: FENTANYL 50 MCG PATCH TD SCH (18:28)
[2020-02-07] MEDS: PHENOBARBITAL SODIUM 65 MG/ML, 1ML IV SCH ×4 (01:35→18:23)
[2020-02-07] MEDS: LORazepam 2 MG/ML, 1ML IVPush SCH ×4 (02:47→20:25)
[2020-02-07] MEDS: SODIUM CHLORIDE 0.9% IVPB PRN ×2 (06:06→16:57)
[2020-02-07] MEDS: HYDROMORPHONE IVPB PRN ×2 (06:06→16:57)
[2020-02-07] MEDS: LORazepam 2 MG/ML, 1ML IVPush PRN (23:49)
[2020-02-07] MEDS: HYDROmorphone 2 MG/ML, 1ML IVPush PRN (23:58)
[2020-02-08] MEDS: HYDROMORPHONE IVPB PRN ×2 (00:44→08:44)
[2020-02-08] MEDS: SODIUM CHLORIDE 0.9% IVPB PRN ×2 (00:44→08:44)
[2020-02-08] MEDS: PHENOBARBITAL SODIUM 65 MG/ML, 1ML IV SCH ×3 (02:09→17:22)
[2020-02-08] MEDS: LORazepam 2 MG/ML, 1ML IVPush SCH ×4 (02:46→19:30)
[2020-02-08] MEDS: SODIUM CHLORIDE 0.9% IV PRN (17:22)
[2020-02-08] MEDS: HYDROMORPHONE HCL IV PRN (17:22)
[2020-02-08] MEDS: LORazepam 2 MG/ML, 1ML IVPush PRN (22:24)
[2020-02-09] MEDS ORDERED: FENTANYL 50 MCG PATCH TD SCH (00:30)
[2020-02-09] MEDS: LORazepam 2 MG/ML, 1ML IVPush SCH ×4 (01:11→20:27)
[2020-02-09] MEDS: PHENOBARBITAL SODIUM 65 MG/ML, 1ML IV SCH ×3 (01:11→18:30)
[2020-02-09] MEDS: HYDROMORPHONE HCL IV PRN ×5 (01:12→21:42)
[2020-02-09] MEDS: SODIUM CHLORIDE 0.9% IV PRN ×5 (01:12→21:42)
[2020-02-09] MEDS: LORazepam 2 MG/ML, 1ML IVPush PRN (06:21)
[2020-02-09] MEDS: FENTANYL 50 MCG PATCH TD SCH (18:13)
[2020-02-09] MEDS: SCOPOLAMINE 1MG PATCH TD SCH (18:32)
[2020-02-10] MEDS: LORazepam 2 MG/ML, 1ML IVPush SCH ×4 (02:13→20:28)
[2020-02-10] MEDS: PHENOBARBITAL SODIUM 65 MG/ML, 1ML IV SCH ×3 (02:13→18:07)
[2020-02-10] MEDS: SODIUM CHLORIDE 0.9% IV PRN ×2 (04:09→14:13)
[2020-02-10] MEDS: HYDROMORPHONE HCL IV PRN ×2 (04:09→14:13)
[2020-02-10] MEDS: FENTANYL 75 MCG PATCH TD SCH (17:30)
[2020-02-10] MEDS ORDERED: FENTANYL 25 MCG PATCH ONE (17:55)
[2020-02-10] MEDS ORDERED: FENTANYL 50 MCG PATCH ONE (17:55)
[2020-02-11] MEDS: HYDROMORPHONE HCL IV PRN ×4 (00:14→20:02)
[2020-02-11] MEDS: SODIUM CHLORIDE 0.9% IV PRN ×4 (00:14→20:02)
[2020-02-11] MEDS: PHENOBARBITAL SODIUM 65 MG/ML, 1ML IV SCH ×3 (02:27→20:56)
[2020-02-11] MEDS: LORazepam 2 MG/ML, 1ML IVPush SCH ×4 (02:51→19:57)
[2020-02-12] MEDS: LORazepam 2 MG/ML, 1ML IVPush SCH ×4 (01:46→20:20)
[2020-02-12] MEDS: SODIUM CHLORIDE 0.9% IV PRN ×4 (02:31→20:43)
[2020-02-12] MEDS: HYDROMORPHONE HCL IV PRN ×4 (02:31→20:43)
[2020-02-12] MEDS: PHENOBARBITAL SODIUM 65 MG/ML, 1ML IV SCH ×3 (04:12→21:10)
[2020-02-12] MEDS: SCOPOLAMINE 1MG PATCH TD SCH (18:34)
[2020-02-12] MEDS: LORazepam 2 MG/ML, 1ML IVPush PRN (22:54)
[2020-02-13] MEDS: HYDROMORPHONE HCL IV PRN ×2 (01:15→06:25)
[2020-02-13] MEDS: SODIUM CHLORIDE 0.9% IV PRN ×4 (01:15→18:36)
[2020-02-13] MEDS: LORazepam 2 MG/ML, 1ML IVPush SCH ×4 (03:04→20:20)
[2020-02-13] MEDS: PHENOBARBITAL SODIUM 65 MG/ML, 1ML IV SCH ×3 (05:54→21:28)
[2020-02-13] MEDS: HYDROMORPHONE IV PRN ×2 (13:39→18:36)
[2020-02-13] MEDS: FENTANYL 75 MCG PATCH TD SCH (17:30)
[2020-02-13] MEDS ORDERED: FENTANYL REMOVE PATCH NOTE XX SCH (17:30)
[2020-02-13] MEDS ORDERED: FENTANYL 50 MCG PATCH ONE (17:36)
[2020-02-13] MEDS ORDERED: FENTANYL 25 MCG PATCH ONE (17:36)
[2020-02-14] MEDS: SODIUM CHLORIDE 0.9% IV PRN ×5 (00:07→23:09)
[2020-02-14] MEDS: HYDROMORPHONE IV PRN ×5 (00:07→23:09)
[2020-02-14] MEDS: LORazepam 2 MG/ML, 1ML IVPush SCH ×4 (01:36→20:04)
[2020-02-14] MEDS: PHENOBARBITAL SODIUM 65 MG/ML, 1ML IV SCH ×3 (05:40→21:37)
[2020-02-14] MEDS: LORazepam 2 MG/ML, 1ML IVPush PRN (16:44)
[2020-02-14] MEDS ORDERED: FENTANYL REMOVE PATCH NOTE XX SCH (18:59)
[2020-02-14] MEDS ORDERED: HYDROmorphone 2 MG/ML, 1ML IVPush PRN (19:00)
[2020-02-14] MEDS ORDERED: FENTANYL 100 MCG PATCH TD SCH (19:00)
[2020-02-14] MEDS ORDERED: MORPHINE 30MG/30ML PCA.SYR IV PRN (22:00)
[2020-02-15] MEDS: LORazepam 2 MG/ML, 1ML IVPush SCH ×5 (02:28→22:07)
[2020-02-15] MEDS: SODIUM CHLORIDE 0.9% IV PRN ×4 (04:23→22:56)
[2020-02-15] MEDS: HYDROMORPHONE IV PRN ×4 (04:23→22:56)
[2020-02-15] MEDS: LORazepam 2 MG/ML, 1ML IVPush PRN ×2 (04:24→13:17)
[2020-02-15] MEDS: PHENOBARBITAL SODIUM 65 MG/ML, 1ML IV SCH (05:40)
[2020-02-15] MEDS ORDERED: FENTANYL 25 MCG PATCH TD ONE (10:00)
[2020-02-15] MEDS ORDERED: FENTANYL 12 MCG PATCH ONE (10:42)
[2020-02-15] MEDS: PHENOBARBITAL SODIUM 130 MG/ML, 1ML IV SCH ×2 (11:53→19:20)
[2020-02-15] MEDS: ATROPINE OPHTH SOLN 1%, 5ML BC PRN ×5 (13:11→22:57)
[2020-02-15] MEDS: SCOPOLAMINE 1MG PATCH TD SCH (18:08)
[2020-02-15] MEDS ORDERED: PHENOBARBITAL SODIUM 65 MG/ML, 1ML ONE (19:15)
[2020-02-16] MEDS ORDERED: PHENOBARBITAL SODIUM 65 MG/ML, 1ML ONE (01:43)
[2020-02-16] MEDS: ATROPINE OPHTH SOLN 1%, 5ML BC PRN ×7 (01:47→14:21)
[2020-02-16] MEDS: PHENOBARBITAL SODIUM 130 MG/ML, 1ML IV SCH ×3 (01:49→14:21)
[2020-02-16] MEDS: LORazepam 2 MG/ML, 1ML IVPush SCH ×4 (02:29→14:21)
[2020-02-16] MEDS: SODIUM CHLORIDE 0.9% IV PRN ×2 (04:37→10:35)
[2020-02-16] MEDS: HYDROMORPHONE IV PRN ×2 (04:37→10:35)
[2020-02-17] MEDS ORDERED: FENTANYL 25 MCG PATCH TD SCH (20:00)
[2020-02-17] MEDS ORDERED: FENTANYL REMOVE PATCH NOTE XX SCH (20:00)
== END 2020-02-16 16:46 | disposition expired | DRG 442 ==
LOC: 3N 13:05 → 4NW 15:14 → 3N 02-04 13:45
PROVIDERS: ADMIT Internal Medicine; ATTEND Hospitalist
DX: K72.00 Acute and subacute hepatic failure without coma (principal); F11.20 Opioid dependence, uncomplicated; D61.818 Other pancytopenia; E87.2 Acidosis; K76.6 Portal hypertension; N18.4 Chronic kidney disease, stage 4 (severe); M86.612 Other chronic osteomyelitis, left shoulder; R44.3 Hallucinations, unspecified; R45.1 Restlessness and agitation; B18.2 Chronic viral hepatitis C; F10.20 Alcohol dependence, uncomplicated; I12.9 Hypertensive chronic kidney disease with stage 1 through stage 4 chronic kidney disease, or unspecified chronic kidney disease; Z66 Do not resuscitate; E87.5 Hyperkalemia; I95.9 Hypotension, unspecified; Z51.5 Encounter for palliative care; D63.8 Anemia in other chronic diseases classified elsewhere; Z79.2 Long term (current) use of antibiotics; B95.62 Methicillin resistant Staphylococcus aureus infection as the cause of diseases classified elsewhere
CPT/HCPCS: 36415; 86480; G0378; J1170; J2270; J2560; J3486; J1630; J2060; J7050